=== PATIENT | male | born 1950 | race Caucasian/White ===

== ENCOUNTER → 2018-04-26 | Outpatient (CLI) | payer BC | LOC: FIMAGING 13:48 | PROVIDERS: ATTEND Family Medicine | DX: I80.02 Phlebitis and thrombophlebitis of superficial vessels of left lower extremity (principal) ==

== ENCOUNTER 2018-10-31 10:06 | Inpatient (IN) | payer BC ==
[2018-10-31] MEDS ORDERED: fentaNYL 100 MCG/2 ML INJ IVP ONE (11:12)
--- NOTE | 2018-10-31 11:16 | EDPHY ---
General - History Smoking Status: Never smoked Time Seen by Provider: 10/31/18 10:21 Narrative: CLINICAL IMPRESSION: Left leg cellulitis, acute renal insufficiency ASSESSMENT/PLAN: 68-year-old male with reported past medical history of hypertension presents to the emergency department with approximately 1 week of left leg redness, pain and swelling. Patient reports a past history of his superficial DVT to this leg treated with [id number] NSAIDs last year. No reported travel, trauma , or recent surgery. Patient has a very erythematous circumferential left lower leg with extension along the medial aspect of the upper leg into the groin. No clinical signs to suggest necrotizing fasciitis, Gaye gangrene, osteomyelitis, or deep space abscess, ultrasound negative for DVT. No clinical signs of compartment syndrome. Distal neurovascular exam intact. No open wounds. Patient was found to have acute renal insufficiency with a creatinine of 3.2, leukocytosis of 20, normal lactate and arrives with stable vital signs, afebrile, no tachycardia or respiratory distress. No reported history of MRSA or prior staph infections. Patient is not diabetic. Blood cultures ordered. Ancef initiated in the ED and patient will be admitted to the hospitalist service. Discussed with Dr. Lehman who accepts admission. DIFFERENTIAL DX: Differential includes but not limited to DVT, superficial thrombus, venous stasis, cellulitis, necrotizing fasciitis, osteomyelitis ED PROCEDURES: See lab and/or imaging results below ED COURSE: 11:15 a.m.. Allergy calls with ultrasound resort which is negative for DVT. Reactive lymph node in left groin. Clinically, patient appears to have a very cellulitic leg. Labs show leukocytosis of 20, acute renal insufficiency of 3.2 , no electrolyte imbalance and normal lactate. 12:30 p.m.: Patients case discussed with Dr. Lehman who accepts admission. Labs notable for leukocytosis of 20, normal lactic, renal insufficiency with a creatinine 3.2. IV Ancef ordered per Dr. Blackwell his request. Patient comfortable with admission. CHIEF COMPLAINT: Left leg swelling HPI: 68-year-old male with reported past medical history of hypertension presents to the emergency department with approximately 1 week of left leg swelling. No reported trauma or injury. Patient reports past history of superficial thrombus in this leg treated with [id number]-khlpiyu NSAIDs the last year with full resolution. He reports his left leg is always slightly more swollen than his right. He reports no fevers or chills, heart palpitations, shortness of breath, or chest pain. No open wound or injury to the leg. No history of MRSA or staph. No IV drug abuse. Patient was brought to the ED today by his sister he has not seen a provider for his leg. PAST MEDICAL HISTORY: Hypertension See nurse/triage notes for additional history if applicable Pertinent Past Surgical History: None reported Family History: Noncontributory Social History: Denies history of staph, MRSA, nonsmoker, here with his sister REVIEW OF SYSTEMS: All other systems negative Constitutional: No fever, no chills, appetite change. Cardiovascular: No chest pain, no palpitations. Respiratory: No cough, no shortness of breath. Gastrointestinal: No abdominal pain, no vomiting, diarrhea. Genitourinary: No hematuria, dysuria, flank pain, pelvic pain Musculoskeletal: No back pain, positive for joint swelling, positive for joint pain, denies myalgias. Skin: Positive for color change to left leg Neurological: No headache, dizziness, weakness. PHYSICAL EXAM: General Appearance: Alert, oriented, appropriate, obese, cooperative, appears mildly uncomfortable, well hydrated, non-toxic appearing, afebrile, no tachycardia, no hypoxia. Respiratory: There are no retractions, lungs are clear to auscultation. Cardiac: Regular rate and rhythm, no murmurs or gallops. Gastrointestinal: Abdomen is soft, nontender, bowel sounds normal, no masses/ hernia, no rigidity, guarding or focal peritoneal findings. Neurological: Alert and oriented x 3, CN 2-12 grossly intact, normal gait no ataxia, DTR's intact, normal sensation and strength Skin: Warm, dry, no rashes, no nodules on palpation. Musculoskeletal: Asymmetric swelling of left lower leg compared to right. Circumferential erythema and warmth of the entire left lower leg extending to the ankle and foot with extension along the medial aspect of the left upper leg into the groin. No perineal involvement. No scrotal or testicular swelling or pain. No crepitus. No obvious open wound. Distal neurovascular exam is intact. Full range of motion of ankle foot knee and hip without joint pain. Psychiatric: Patient is oriented X 3, there is no agitation. MEDICAL DECISION MAKING: Patient was seen independently. Secondary supervising physician at time of evaluation was Dr. Owens . Diagnosis: Left leg cellulitis, acute renal insufficiency. New, requires workup Summary: See Assessment and Plan for summary of ED visit Clinical lab tests: ordered / reviewed. Independent visualization of images, tracing, or specimens: Yes. Decision to obtain medical records or history from someone other than the patient: No Review / Summarize previous medical records: None available Discussed patient with another provider: Dr. Lehman Patient Progress: Stable for admission. (Esa Roman) Discussion: The patient was evaluated and managed by the Physician [employer]. I discussed the patient's presentation and course with the midlevel provider with them and agree with the evaluation. My co-signature indicates that I have reviewed this chart and I agree with the findings and plan of care as documented. I am the secondary supervising physician. Sepsis Evaluation Note: The patient presents to the ED with potential infection identified as cellulitis. The patient did not have evidence of sepsis; he was afebrile, not tachycardic, not tachypneic. He did have a significantly elevated white blood cell count at 20,000. Lactic acid was normal. INR was normal. Platelets were normal. Bilirubin was not elevated. Patient did have evidence of acute renal insufficiency. Patient received ceftriaxone 1 g. (Estefani Owens) - Objective Vital Signs: Initial Vital Signs Temperature (C) 36.4 C 10/31/18 10:14 Heart Rate 89 10/31/18 10:14 Respiratory Rate 18 10/31/18 10:14 Blood Pressure 106/60 10/31/18 10:14 O2 Sat (%) 94 10/31/18 10:14 O2 Delivery Mode Room Air Allergies/Adverse Reactions: No Known Allergies Allergy (Verified 10/31/18 13:07) Home Medications: Medication Instructions Recorded Losartan/Hydrochlorothiazide 1 each PO DAILY 10/31/18 [Losartan-Hctz 100-25 mg Tab] Laboratory Results: Laboratory Results 10/31/18 11:27 10/31/18 11:27 Medications Given: Hydrocodone Bitart/Acetaminophen ([place] 5/325) 1 - 2 tab PO Q4HRS PRN PRN Reason: Pain, Moderate Able to Take PO Stop: 11/10/18 12:43 Last Admin: 11/01/18 06:47 Dose: 2 tab Heparin Sodium (Porcine) (Heparin Sc Injection) 5,000 unit SC Q8 RONNIE Stop: 04/29/19 13:59 Last Admin: 11/01/18 13:06 Dose: 5,000 unit Cefazolin Sodium/Dextrose (Ancef) 100 mls @ 200 mls/hr IV Q12H RONNIE PRN Reason: Protocol Stop: 11/30/18 20:59 Last Admin: 11/01/18 08:04 Dose: 100 mls Sodium Chloride (Ns) 1,000 mls @ 100 mls/hr IV CONT RONNIE Stop: 04/29/19 12:44 Last Admin: 11/01/18 13:07 Dose: 1,000 mls Discontinued Medications Fentanyl (Sublimaze) 50 mcg IVP EDNOW ONE Stop: 10/31/18 11:13 Last Admin: 10/31/18 11:29 Dose: 50 mcg Sodium Chloride (Ns) 1,000 mls @ 0 mls/hr IV EDNOW ONE; Wide Open PRN Reason: Protocol Stop: 10/31/18 12:08 Last Admin: 10/31/18 12:21 Dose: 1,000 mls Ceftriaxone Sodium/Dextrose (Rocephin 1 Gm (Premix)) 50 mls @ 100 mls/hr IV EDNOW ONE PRN Reason: Protocol Stop: 10/31/18 12:48 Last Admin: 10/31/18 15:23 Dose: Not Given Cefazolin Sodium/Dextrose (Ancef) 100 mls @ 200 mls/hr IV EDNOW ONE PRN Reason: Protocol Stop: 10/31/18 13:01 Last Admin: 10/31/18 13:24 Dose: 100 mls Sodium Chloride (Ns) 1,000 mls @ 0 mls/hr IV ONCE ONE; Wide Open PRN Reason: Protocol Stop: 10/31/18 13:36 Last Admin: 10/31/18 13:30 Dose: 1,000 mls Sodium Chloride (Ns) 250 mls @ 500 mls/hr IV ONCE ONE Stop: 11/01/18 12:14 Last Admin: 11/01/18 11:53 Dose: 250 mls Departure - Departure Disposition: [facility] Inpatient Acute Clinical Impression: Left leg cellulitis, Renal insufficiency
[2018-10-31 11:41] LABS: PLATELET COUNT 182 10^3/uL (150-400)
[2018-10-31] MEDS ORDERED: NS 1,000 ML IV ONE ×2 (12:07→13:35)
[2018-10-31] MEDS ORDERED: ceFAZolin 2 GM/DEXTROSE 100 ML IV ONE (12:32)
[2018-10-31] MEDS ORDERED: ONDANSETRON 4 MG/2 ML VIAL IVP PRN (12:44)
[2018-10-31] MEDS ORDERED: ACETAMINOPHEN 325 MG TAB PO PRN (12:44)
[2018-10-31] MEDS ORDERED: ONDANSETRON DISINTEGRATING 4 MG TAB PO PRN (12:44)
[2018-10-31] MEDS ORDERED: HYDROmorphONE/DILAUDID 1 MG/ML INJ IVP PRN (12:44)
--- NOTE | 2018-10-31 12:53 | PDGENHP ---
History and Physical - Chief Complaint LLE pain, swelling, redness - History of Present Illness 68 yo male with h/o obesity and hypertension presents to ED with LLE swelling, pain and redness. His symptoms started 4 days ago with mild LLE discomfort. Today, he noticed increased redness and felt "pins and needles" with increased swelling and redness. He denies recent injury or skin lacerations. He denies fevers or chills. He reports decreased oral intake recently. He takes Losartan / HCTZ for hypertension. He also notes he has been told by PCP he has small amount of blood in his urine, but he denies gross hematuria or clots. No N/V. No abdominal pain, CP or SOB. In the ED, he had a LE u/s which was negative for DVT. His WBC count is elevated and he has a LLE cellulitis. He is noted to have elevated BUN and Cr. He received 2 g IV Ancef and is admitted for further management. History Information - Allergies/Home Medication List Allergies/Adverse Reactions: No Known Allergies Allergy (Verified 10/31/18 13:07) Home Medications: Losartan/Hydrochlorothiazide [Losartan-Hctz 100-25 mg Tab] 1 each PO DAILY 10/31 [Last Taken 10/31/18] I have personally reviewed and updated: family history, medical history, social history, surgical history - Past Medical History hypertension Additional medical history: h/o microscopic hematuria. obesity - Surgical History Reports: no pertinent surgical hx - Family History Positive for: non-pertinent - Social History Smoking Status: Never smoked Alcohol Use: Rarely Drug Use: None Additional social history: Lives with his sister. 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 No recent injuries. Review of Systems Review of Systems: ROS: 10pt was reviewed & negative except for what was stated in HPI & below Physical Exam Physical Exam: Temp Pulse Resp BP Pulse Ox 36.4 C 89 18 106/60 94 10/31/18 10:14 10/31/18 10:14 10/31/18 10:14 10/31/18 10:14 10/31/18 10:14 Constitutional: no apparent distress Eyes: PERRL Ears, Nose, Mouth, Throat: moist mucous membranes Cardiovascular: regular rate and rhythym Respiratory: no respiratory distress, clear to auscultation Gastrointestinal: normoactive bowel sounds, soft, non-tender abdomen Skin: warm, other (LLE with edema and circumferential erythema of distal LE, lymphangitic streaking to groin with LAD) Musculoskeletal: full muscle strength Neurologic: AAOx3 Psychiatric: interacting appropriately Lab Data & Imaging Review 10/31/18 11:27 10/31/18 11:27 WBC 20.45 10^3/uL (3.80-9.50) H 10/31/18 11:27 RBC 5.19 10^6/uL (4.40-6.38) 10/31/18 11:27 Hgb 16.1 g/dL (13.7-17.5) 10/31/18 11:27 Hct 47.5 % (40.0-51.0) 10/31/18 11:27 MCV 91.5 fL (81.5-99.8) 10/31/18 11:27 MCH 31.0 pg (27.9-34.1) 10/31/18 11:27 MCHC 33.9 g/dL (32.4-36.7) 10/31/18 11:27 RDW 14.6 % (11.5-15.2) 10/31/18 11:27 Plt Count 182 10^3/uL (150-400) 10/31/18 11:27 MPV 10.3 fL (8.7-11.7) 10/31/18 11:27 Neut % (Auto) Not Reported 10/31/18 11:27 Lymph % (Auto) Not Reported 10/31/18 11:27 [place] % (Auto) Not Reported 10/31/18 11:27 Eos % (Auto) Not Reported 10/31/18 11:27 Baso % (Auto) Not Reported 10/31/18 11:27 Nucleat RBC Rel Count Not Reported 10/31/18 11:27 Absolute Neuts (auto) Not Reported 10/31/18 11:27 Absolute Lymphs (auto) Not Reported 10/31/18 11:27 Absolute Monos (auto) Not Reported 10/31/18 11:27 Absolute Eos (auto) Not Reported 10/31/18 11:27 Absolute Basos (auto) Not Reported 10/31/18 11:27 Absolute Nucleated RBC Not Reported 10/31/18 11:27 Immature Gran % Not Reported 10/31/18 11:27 Seg Neutrophils % 91.0 % 10/31/18 11: Band Neutrophils % 5.0 % 10/31/18 11: Lymphocytes % 3.0 % 10/31/18 11: Monocytes % 1.0 % 10/31/18 11: Eosinophils % 0.0 % 10/31/18 11: Basophils % 0.0 % 10/31/18 11: Metamyelocytes % 0.0 % 10/31/18 11: Myelocytes % 0.0 % 10/31/18 11: Promyelocytes % 0.0 % 10/31/18 11: Blast Cells % 0.0 % 10/31/18 11:27 Immature Gran # Not Reported 10/31/18 11: Absolute Seg Neuts 18.61 10^3/uL (1.70-6.50) H 10/31/18 11:27 Absolute Band Neuts 1.02 10^3/uL (0.00-0.70) H 10/31/18 11:27 Absolute Lymphocytes 0.61 10^3/uL (1.00-3.00) L 10/31/18 11:27 Absolute Monocytes 0.20 10^3/uL (0.30-0.80) L 10/31/18 11: Absolute Eosinophils 0.00 10^3/uL (0.03-0.40) L 10/31/18 11: Absolute Basophils 0.00 10^3/uL (0.02-0.10) L 10/31/18 11:27 Absolute Metamyelocyte 0.00 10^3/mL (0.00-0.00) 10/31/18 11:27 Absolute Myelocytes 0.00 10^3/mL (0.00-0.00) 10/31/18 11:27 Absolute Promyelocytes 0.00 10^3/uL (0.00-0.00) 10/31/18 11: Absolute Plasma Cells 0.00 10^3/uL (0.00-0.00) 10/31/18 11: Nucleated RBCs 0 /100 WBC (0-0) 10/31/18 11:27 Absolute Blast Cells 0.00 10^3/uL (0.00-0.00) 10/31/18 11:27 Plasma Cells % 0.0 % 10/31/18 11:27 Toxic Vacuolation PRESENT H 10/31/18 11:27 Platelet Estimate ADEQUATE (ADEQ) 10/31/18 11:27 Oval Macrocytes 1+ H 10/31/18 11:27 VBG Lactic Acid 1.3 mmol/L (0.7-2.1) 10/31/18 11:54 Sodium 135 mEq/L (135-145) 10/31/18 11:27 Potassium 3.9 mEq/L (3.5-5.2) 10/31/18 11:27 Chloride 98 mEq/L (97-110) 10/31/18 11:27 Carbon Dioxide 23 mEq/l (22-31) 10/31/18 11:27 Anion Gap 14 mEq/L (6-14) 10/31/18 11:27 BUN 82 mg/dL (7-23) H 10/31/18 11:27 Creatinine 3.2 mg/dL (0.7-1.3) H 10/31/18 11:27 Estimated GFR 10/31/18 11:27 Glucose 103 mg/dL (70-100) H 10/31/18 11:27 Calcium 9.1 mg/dL (8.5-10.4) 10/31/18 11:27 Assessment & Plan Assessment: Sepsis 2/2 LLE cellulitis - WBC 20 with HR ~100, afebrile, nl lactate, no hypotension. CRP markedly elevated >400. Source could be cracked skin on heel. Also a bit of onychomycosis, mostly left great toenail. U/S neg for DVT , groin LAD likely reactive. -bolus 1L NS now -Ancef 2 g IV q12h (renally dosed) -elevate leg, pain control -BCx's pending -trend wbc's and crp -ID consult if not improving MARK - prior data from 2010 showed nl Cr, o/w unclear baseline. He does take Losartan/HCTZ, which could be contributory. Azotemia suggests pre-renal. -check ua (hematuria noted, granular casts suggestive of ATN, 1+ protein) will check urine pro:Cr ratio -send urine studies for FeNa -renal u/s is negative for hydro or abnormalities of kidneys -will give NS for hydration and recheck labs in am -hold ARB and HCTZ -renal consult if not improving with IVF's Microscopic hematuria - pt has been told he has microscopic hematuria during prior physical exams, has not seen urology -outpt urology consult as he likely warrants cystoscopy Hypertension - hold losartan / hctz, currently normotensive Full code DVT PPLX - Heparin (monitor to ensure he doesn't develop gross hematuria) Dispo - inpt, anticipate >48 hrs hospitalization for management of LLE cellulitis and MARK
[2018-10-31 13:00] LABS: INR 1.05 (0.83-1.16); PROTIME(PATIENT) 13.9 SEC (12.0-15.0)
[2018-10-31] MEDS: HEPARIN 5,000 UNIT/0.5 ML INJ SC SCH ×2 (14:26→21:08)
--- NOTE | 2018-10-31 15:12 | PDMN ---
Medical Necessity Medical necessity: Pt meets inpt criteria per MD order and [facility] [place] [id number], Renal Failure, Acute. 68 y/o admitted w/LLE cellulitis and MARK w/BUN & creatinine of 82 & 3.2. IVF, IV abx's, bl cx's pending, 3 L O2 at this time, further workup w/ UA and renal US. Anticipate>2MN for management of above.
[2018-10-31] MEDS: HYDROCODONE/APAP 5/325 TAB PO PRN ×2 (18:22→22:23)
[2018-10-31] MEDS: NS 1,000 ML IV SCH (21:08)
[2018-10-31] MEDS: ceFAZolin 2 GM/DEXTROSE 100 ML IV SCH (21:08)
[2018-11-01] MEDS: HYDROCODONE/APAP 5/325 TAB PO PRN ×3 (02:35→21:25)
[2018-11-01 05:21] LABS: PLATELET COUNT 162 10^3/uL (150-400)
[2018-11-01] MEDS: HEPARIN 5,000 UNIT/0.5 ML INJ SC SCH ×3 (05:51→21:25)
[2018-11-01] MEDS: NS 1,000 ML IV SCH ×3 (07:02→23:59)
[2018-11-01] MEDS: ceFAZolin 2 GM/DEXTROSE 100 ML IV SCH ×2 (08:04→21:24)
--- NOTE | 2018-11-01 10:01 | ASMTCMCOM ---
CM Note CM Note Notes: Pt s a 68 y/o man admitted for left leg cellulitis and acute renal insufficiency. Pt will most likely d/c independent when medically stable. No therapies ordered at this time. CM available for changes. Plan: Independent Date Signed: 11/01/2018 10:01 AM Electronically Signed By:CHRISTINA Luz
--- NOTE | 2018-11-01 10:49 | HOSPPROG ---
Hospitalist Progress Note Assessment/Plan: Damian Bowles presented to the ER with LLE swelling and pain, his symptosm started 4 days prior to admission. Ultrasound of left leg negative for a DVT.First encounter, chart reviewed. *Sepsis 2/2 LLE cellulitis -has high wbc, elevated heart rate on admission -CRP elevated -left toe nail w some onychomycosis -will ask ID to get involved w his care -Ancef 2 g IV q12h (renally dosed) *morbid obesity w a BMI of 42 *MARK -takes Losartan/HCTZ -FENA is 0.48 %, showing likely [id number] hydration, if not significantly improved, will ask nephrology to see -CREAT is improving w hydration -renal ultrasound is negative for hydro or other abnormalities -has hematuria and proteinuria-will need OP f/u *Microscopic hematuria - pt has been told he has microscopic hematuria during prior physical exams, has not seen urology -outpt urology consult as he likely warrants cystoscopy Hypertension - hold losartan / hctz, currently normotensive Full code *dvt prophylaxis: heparin sq tid Subjective: Damian said his leg feels more painful when he gets antibiotic infusions. Objective: Vital Signs Temp Pulse Resp BP Pulse Ox 36.9 C 86 18 96/57 L 93 11/01/18 08:14 11/01/18 08:14 11/01/18 08:14 11/01/18 08:39 11/01/18 08:14 Laboratory Results 11/01/18 05:05 11/01/18 05:05 10/31/18 11/01/18 11/02/18 05:59 05:59 05:59 Intake Total 2400 600 Output Total 1125 200 Balance 1275 400 PT 13.9 SEC (12.0-15.0) 10/31/18 11:27 INR 1.05 (0.83-1.16) 10/31/18 11:27 - Physical Exam Constitutional: chronically ill appearing, obese, uncomfortable Eyes: PERRL Ears, Nose, Mouth, Throat: hearing normal Cardiovascular: regular rate and rhythym, no murmur, rub, or gallop Respiratory: no respiratory distress, reduced air movement Gastrointestinal: other (abd large and round) Skin: warm, other (left lower ext with swelling, redness, warmth, tender, has a cracked dry heel) Neurologic: AAOx3 Psychiatric: interacting appropriately ICD10 Worksheet Patient Problems: Problems Problem Status Onset Left leg cellulitis Acute Renal insufficiency Acute
[2018-11-01] MEDS ORDERED: NS 250 ML IV ONE (11:45)
--- NOTE | 2018-11-01 14:22 | GCON ---
[f rep st] CONSULTATION INFECTIOUS DISEASE CONSULTATION DATE OF CONSULTATION: 11/01/2018 REFERRING PHYSICIAN: Gillian Tran NP REASON FOR CONSULTATION: Left lower extremity cellulitis and leukocytosis. HISTORY OF PRESENT ILLNESS: A 68-year-old male with minimal past medical history except for superficial DVT in June or July 2018, treated with Advil, and hypertension, who was in his usual state of health until October 27 when he describes the onset of malaise, nausea, and pins and needles in his left lower extremity. He stayed home from work the following day, but then started noticing progressive redness in his legs and eventually presented to the emergency room for further evaluation 10/31/2018, and was found to have left lower extremity cellulitis. Blood cultures were obtained at that time, which are no growth to date, and the patient was empirically started on renally dosed cefazolin as the patient was found to have a creatinine of 3.2. Renal ultrasound was negative, and DVT study of his left lower extremity was negative. We are asked to see the patient today for the help in management of severe left lower extremity cellulitis complicated by significant associated leukocytosis and renal failure. The patient reports that his leg is 40% better today, specifically describing less intense redness, as well as swelling. He noticed that the erythema was streaking up his medial thigh, and he states that that is the part that is most improved. He denies ever having any fevers or chills. Prior to coming into the hospital, the patient was taking for about 3 to 4 days, 4 tablets of ibuprofen every 6 hours. He is having intermittent pain of the left lower extremity that is a little bit worse than on admission, particularly with ambulating. The patient denies any injury to his leg precipitating this event nor has he had a past skin infection. He had been instructed to wear compression stockings in the past, but is unaware of a specific diagnosis of venous insufficiency. He does comply with his compression socks, as for his job the patient stands long hours. PAST MEDICAL HISTORY: History of superficial DVT in June 2018, treated with Advil. Hypertension. He was on losartan/hydrochlorothiazide since September 05 2018. PAST SURGICAL HISTORY: Multiple eye surgeries. He has had 2 detached retinas starting in 2008, followed by cataract surgery, and YAG. FAMILY HISTORY: Positive for diabetes in his father and his sister. SOCIAL HISTORY: The patient has never smoked. No alcohol. 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 He was born and raised in [place]. He has a pet dog, but denies specific injury from his dog and no recent travel. The patient lives with his sister. ALLERGIES: NKDA. MEDICATIONS: Ancef 2 g IV q.12 h., as well as a variety of other p.r.n. medicines. REVIEW OF SYSTEMS: A complete 10-point review of systems was performed and was negative except as mentioned in the HPI or below. The patient does describe urinary frequency, but no dysuria. His urinary frequency is chronic. PHYSICAL EXAM: VITAL SIGNS: T-max 37.2, temperature currently 36.7, blood pressure 103/47, heart rate 84, and saturation 91% on 1 L. GENERAL: This is a very pleasant male sitting up in bed, in no acute distress. HEENT: The patient has surgical pupils bilaterally with obvious prior cataract surgery. No conjunctival injection. The patient has obvious dental caries that are in various stages of management. No thrush or oral ulceration. NECK: Supple. CARDIOVASCULAR: Distant heart sounds. Regular rate. No murmurs. CHEST: Clear to auscultation bilaterally. ABDOMEN: Obese, soft, and nontender. Bowel sounds are present. EXTREMITY EXAM: The patient has circumferential bright erythema that is well demarcated involving about 75% of his lower leg, but sparing his foot. Erythema is tracking up to about 1/3 of the lateral thigh and medial thigh all the way to the groin medially. It appears somewhat freddy in complexion consistent with improvement. The patient has 2+ dorsalis pedis pulses bilaterally and 3+ edema in the left leg, 1+ in the right. NEUROLOGICAL: He is alert and oriented x4. Moving all 4 extremities equally. SKIN: Exam is within normal limits other than what is noted on the extremity exam. VASCULAR: He has a peripheral IV in place in the right forearm that is clean, dry, and intact. GENITOURINARY: No Syed. LABORATORY: Creatinine 2.6 today with standard Cockcroft-Gault. Creatinine clearance is 52, but with adjusted body weight = 37. CRP is 405. Urinalysis showed 50 to 182 RBCs and 10 to 15 WBCs. White count is 21,000, hematocrit 41, platelets 162, 81% neutrophils, and 10% bands. Blood cultures 2/25/19 are no growth to date. IMAGING: As per HPI. ASSESSMENT AND PLAN: This is a 68-year-old male with minimal past medical history, who presents with severe left lower extremity cellulitis and lymphangitis that is gradually improving on empiric therapy with Ancef. 1. Left lower extremity cellulitis and lymphangitis that are gradually improving. Discussed likely pathogens including streptococcus being #1, as well as the possibility of staphylococcus. The patient has no history of methicillin-resistant Staphylococcus aureus. I agree with continued coverage for standard streptococcus and staphylococcus. Add on LFTs due to beta-lactam therapy to monitor going forward. The patient is to continue to elevate his left lower extremity. At this time, would not recommend additional imaging, but will continue to clinically monitor closely. With improvement,would not add clindamycin at this time even though streptococcal disease high on the differential diagnosis. 2. Leukocytosis, most certainly due to severe left lower extremity cellulitis and lymphangitis. We will continue to monitor. 3. Likely underlying venous insufficiency, as well as poor foot hygiene. Discussed nail care and foot care, including focused bathing of his lower extremities and lotion, as well as potentially followup with a quality assurance specialist due to significant skin cracking and calluses. This is likely the portal of his infection. Upon improvement of infection recommend continued use of compression stockings 4. Acute renal failure. Etiology multifactorial due to diuretic therapy and acute infection, as well as nonsteroidal antiinflammatory drug therapy. His adjusted creatinine clearance is 37, and we will continue him on a dose adjusted Ancef 2 g intravenously q.12 h. Greater than 85 minutes spent on this patients care, greater than 50% of time spent counseling, educating, and coordinating care regarding the above mentioned plan. Thank you for this consultation. We will continue to follow patient on a daily basis and adjust antibiotics as his renal functions improve. The patient was educated, which was specifically detailed in above assessment and plan. /[id number]/MODL MTDD
[2018-11-01] MEDS ORDERED: NS 500 ML IV ONE (16:09)
[2018-11-02] MEDS: HEPARIN 5,000 UNIT/0.5 ML INJ SC SCH ×3 (05:23→21:50)
[2018-11-02 05:39] LABS: PLATELET COUNT 208 10^3/uL (150-400)
[2018-11-02] MEDS: HYDROCODONE/APAP 5/325 TAB PO PRN ×2 (06:19→20:55)
[2018-11-02] MEDS ORDERED: PROTOCOL POTASSIUM 1 DOSE MISC PRN (07:46)
[2018-11-02] MEDS ORDERED: NS 500 ML IV ONE (07:46)
[2018-11-02] MEDS ORDERED: POTASSIUM CL 10 MEQ TAB PO ONE ×2 (07:57→20:45)
[2018-11-02] MEDS ORDERED: POTASSIUM Cl (KCl) 100 ML IV SCH ×2 (08:00)
--- NOTE | 2018-11-02 08:08 | HOSPPROG ---
Hospitalist Progress Note Assessment/Plan: Damian Bowles presented to the ER with LLE swelling and pain, his symptosm started 4 days prior to admission. Ultrasound of left leg negative for a DVT. *Sepsis 2/2 LLE cellulitis w associated lymphangitis -has high wbc, elevated heart rate on admission -CRP elevated -left toe nail w some onychomycosis, venous insufficiency -appreciate Id -Ancef 2 g IV q12h (renally dosed) *tachycardia w associated hypotension -give a saline bolus now -patient talking and conversant -get a 12 lead EKG now *hypotension -fluid bolus now *elevated LFT's -better today *hypokalemia -added protocol *morbid obesity w a BMI of 42 *MARK -creat improved w hydration -takes Losartan/HCTZ -FENA is 0.48 %, showing likely [id number] hydration -renal ultrasound is negative for hydro or other abnormalities -has hematuria and proteinuria-will need OP f/u *Microscopic hematuria - pt has been told he has microscopic hematuria during prior physical exams, has not seen urology -outpt urology consult as he likely warrants cystoscopy *Hypertension - hold losartan / hctz *dvt prophylaxis: heparin sq tid *plan: will have a low threshold to tx to step down if he becomes hypotensive again Subjective: Damian said he is feeling better today. Objective: Vital Signs Temp Pulse Resp BP Pulse Ox 36.9 C 124 H 16 85/60 L 92 11/02/18 07:46 11/02/18 07:46 11/02/18 07:46 11/02/18 07:46 11/02/18 07:46 Laboratory Results 11/02/18 05:10 11/02/18 05:10 11/01/18 11/02/18 11/03/18 05:59 05:59 05:59 Intake Total 2400 1250 Output Total 1125 1950 325 Balance 1275 -700 -325 PT 13.9 SEC (12.0-15.0) 10/31/18 11:27 INR 1.05 (0.83-1.16) 10/31/18 11:27 - Physical Exam Constitutional: appears nourished, not in pain, obese Eyes: PERRL Ears, Nose, Mouth, Throat: hearing normal Cardiovascular: regular rate and rhythym, tachycardia Respiratory: no respiratory distress Skin: warm, other (left lower ext w redness, swelling, has redness ext up the back of his left thigh area, has associated lymphangitis) Neurologic: AAOx3 Psychiatric: interacting appropriately ICD10 Worksheet Patient Problems: Problems Problem Status Onset Left leg cellulitis Acute Renal insufficiency Acute
[2018-11-02] MEDS: ceFAZolin 2 GM/DEXTROSE 100 ML IV SCH ×2 (08:25→17:23)
--- NOTE | 2018-11-02 10:42 | PCMIDPN ---
Assessment/Plan: # Severe LLE cellulitis with lymphangitis, likely strep mediated, more intense erythema likely related to expected course with treatment of strep infection. Still with significant leukocytosis/bandemia. Blood cx remain negative --add clindamycin for lytton effect --continue cefazolin, increase dose to q8h due to improving renal function --continue elevation LLE --reviewed risks benefits of PICC line with patient --continue to monitor closely for need for imaging LLE # ARF: Cr improved today, CrCl around 50 Meds Cefazolin 2gm IV q12h#2 micro 10/31 blood cx (2) NGTD Subjective: patient with hypotension and tachycardia due to aflutter denies significant pain LLE, actually improving denies SOB Objective: Vital Signs Temp Pulse Resp BP Pulse Ox 36.9 C 127 H 16 80/62 L 92 11/02/18 07:46 11/02/18 08:58 11/02/18 07:46 11/02/18 08:58 11/02/18 07:46 Laboratory Results 11/02/18 05:10 11/02/18 05:10 11/01/18 11/02/18 11/03/18 05:59 05:59 05:59 Intake Total 2400 1250 Output Total 1125 1950 325 Balance 1275 -700 -325 C-Reactive Protein > 270.0 mg/L (<10.0) H 11/01/18 05:05 - Physical Exam General Appearance: alert, no apparent distress Respiratory: lungs clear, No accessory muscle use Cardiac/Chest: tachycardia, No systolic murmur Extremities: erythema (intense erythema LLE stocking distrubution tracking up medial thigh - erythema more intense and spread compared to yesterday, no crepitis, minimal tenderness to palpation) Peripheral Pulses: 1+: dorsalis-pedis (R), dorsalis-pedis (L) Abdomen: non-tender, soft Skin: normal color, warm/dry, No rash Neuro/Psych: alert, normal mood/affect, oriented x 3 - Time Spent With Patient Time Spent with Patient: greater than 35 minutes Time Spent with Patient: Greater than 35 minutes spent on this patients care, greater than 50% of time spent counseling, educating, and coordinating care regarding the above mentioned plan. ICD10 Worksheet Patient Problems: Problems Problem Status Onset Left leg cellulitis Acute Renal insufficiency Acute
[2018-11-02] MEDS: NS 1,000 ML IV SCH (12:18)
[2018-11-02] MEDS: CLINDAMYCIN 600 MG/DEXTROSE 50 ML IV SCH ×3 (12:20→21:50)
--- NOTE | 2018-11-02 17:53 | GCON ---
[f rep st] CONSULTATION PULMONARY/CRITICAL CARE CONSULTATION DATE OF CONSULTATION: 11/02/2018 REFERRING PHYSICIAN: Gillian Tran NP REASON FOR REFERRAL: Evaluation and management of hypotension and tachycardia, possible sepsis. HISTORY: The patient is a 68-year-old male with a past history of superficial DVT and hypertension w ho was doing pretty well until about a week ago when he started having malaise, nausea, and dysesthes ias in his left lower extremity. He started to notice progressive redness in his left more so than r ight leg and presented to the emergency department 2 days ago, where he was found to have cellulitis. Blood cultures were done at that time. He was found to have acute renal insufficiency. He was see n by Dr. Rogers from infectious disease, who recommended continuing the Ancef and has now recommended adding clindamycin. He was doing fairly well until today when he began to develop hypotension with a systolic blood pressure as low as 69. His heart rate is in the 120s and irregular consistent with atrial fibrillation. He has been given IV fluids, and reports that he is feeling better. His leg is still somewhat tender, but less uncomfortable. He is not feeling particularly lightheaded or short of breath. PAST MEDICAL HISTORY: Hypertension. MEDICATIONS: At the time of admission include losartan/HCTZ. Here in the hospital, he has been on A ncef, and clindamycin was added today. ALLERGIES: None. SOCIAL HISTORY: The patient has never smoked. He does not drink. 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 FAMILY HISTORY: Unremarkable. REVIEW OF SYSTEMS: A 10-point review of systems adds nothing to the history of present illness. PHYSICAL EXAMINATION: GENERAL: The patient is awake and alert. He is in no acute distress. VITAL SIGNS: Blood pressure is 118/74, with a heart rate of 114. He is afebrile. Oxygen saturations are 95% on 2 L. HEENT: Normocephalic and atraumatic. No icterus. NECK: No adenopathy. Trachea is mi dline. CHEST: Clear to auscultation. CARDIAC: Irregular tachycardia without murmur. ABDOMEN: So ft, obese, and nontender. Bowel sounds are present. EXTREMITIES: No clubbing or cyanosis. He has extensive erythema of calf with patchy erythema up to the knee. The mid to lower calf and anterior l ower leg on the left are very erythematous and somewhat tender. NEURO: The patient is awake and analy rt. There are no gross motor or sensory deficits. LABORATORY: A creatinine is 1.8, down from 3.2 at admission. A potassium is 3.3. Bicarbonate level is 20, up from 19 yesterday, but down from 23 at admission. A white blood count is 19.8, down from 20.5 at admission. A chest x-ray shows appropriate position of a PICC line with no acute changes. L actate was 1.3 at admission. ASSESSMENT: 1. Hypotension. This may be related to the patient's sepsis and third-spacing. New onset atrial fi brillation with a rapid ventricular response could also be contributing. He has improved with IV flu ids. 2. Atrial fibrillation with rapid ventricular response. There is new onset atrial fibrillation, wit h no prior history. It is likely related to stress due to his cellulitis. His rate has come down sl ightly with hydration. He is asymptomatic. RECOMMENDATIONS: 1. Continue empiric antibiotics. 2. Continue fluids. 3. Check a lactate level. 4. Rate control with Cardizem on a p.r.n. basis, but I do not think that is currently needed. 5. Continue to observe in the ICU. If he is doing well, he could potentially leave the ICU tomorrow . /[id number]/MODL
[2018-11-03] MEDS: ceFAZolin 2 GM/DEXTROSE 100 ML IV SCH ×3 (00:13→16:49)
[2018-11-03] MEDS ORDERED: NS 500 ML IV ONE (00:44)
[2018-11-03] MEDS: CLINDAMYCIN 600 MG/DEXTROSE 50 ML IV SCH ×3 (05:08→22:39)
[2018-11-03] MEDS: NS 1,000 ML IV SCH ×2 (05:09)
[2018-11-03] MEDS: HEPARIN 5,000 UNIT/0.5 ML INJ SC SCH ×2 (05:10→16:50)
[2018-11-03] MEDS: HYDROCODONE/APAP 5/325 TAB PO PRN ×2 (08:10→15:11)
[2018-11-03] MEDS ORDERED: POTASSIUM CL 10 MEQ TAB PO ONE ×2 (08:29→20:34)
--- NOTE | 2018-11-03 09:05 | HOSPPROG ---
Hospitalist Progress Note Assessment/Plan: Damian Bowles presented to the ER with LLE swelling and pain, his symptoms started 4 days prior to admission. *Sepsis 2/2 LLE cellulitis w associated lymphangitis -Ancef 2 g IV q12h (renally dosed) -clindamycin added yesterday -ultrasound negative *afib, flutter -rate has significantly slowed down with hydration, but is ongoing -cardiology to see *hypotension -resolved w multiple fluid bolus *elevated LFT's -much improved *hypokalemia -added protocol *morbid obesity w a BMI of 42 *MARK -resolved -hold bp, diuretic -renal ultrasound is negative for hydro or other abnormalities -has hematuria and proteinuria-will need OP f/u *Microscopic hematuria - pt has been told he has microscopic hematuria during prior physical exams, has not seen urology -outpt urology consult as he likely warrants cystoscopy *Hypertension - hold losartan / hctz in the setting of sepsis *dvt prophylaxis: heparin sq tid *plan: tx to tele, cards to see, dc fluids Subjective: Damian did not sleep well last night, his back is hurting and left leg has pain. Objective: Vital Signs Temp Pulse Resp BP Pulse Ox 36.4 C 107 H 20 119/76 96 11/03/18 08:00 11/03/18 08:00 11/03/18 08:00 11/03/18 08:00 11/03/18 08:00 Laboratory Results 11/02/18 05:10 11/03/18 05:05 11/02/18 11/03/18 11/04/18 05:59 05:59 05:59 Intake Total 1250 3894 500 Output Total 1950 3430 200 Balance -700 464 300 PT 13.9 SEC (12.0-15.0) 10/31/18 11:27 INR 1.05 (0.83-1.16) 10/31/18 11:27 - Physical Exam Constitutional: appears nourished, obese, uncomfortable, No not in pain Eyes: PERRL Ears, Nose, Mouth, Throat: hearing normal Cardiovascular: irregularly irregular, tachycardia Respiratory: no respiratory distress, reduced air movement Skin: warm, other (left lower ext red, hot, has some yellowish drainage, redness extends above the knee into the left groin area , has some wrinkling in his nina area) Neurologic: AAOx3 Psychiatric: interacting appropriately ICD10 Worksheet Patient Problems: Problems Problem Status Onset Left leg cellulitis Acute Renal insufficiency Acute
--- NOTE | 2018-11-03 12:58 | PCMIDPN ---
Assessment/Plan: Assessment: 68-year-old man with severe left lower extremity cellulitis and erysipelas. His leg is improved within 24 hr after adding clindamycin as the adjunct for decreasing toxin production. Suspect his conversion atrial fibrillation may be related to the intense inflammatory responses infection. Will continue with dual antibiotic therapy for at least 48 hr and reassess for single agent therapy as definitive treatment. 1. Severe left lower extremity cellulitis with erysipelas, improved 2. Atrial fibrillation with hypotension, improved; likely cycle of inflammatory response 3. Acute kidney injury secondary to 1., improved 4. Transaminase elevation, secondary to 1.; resolved Plan: 1. Continue cefazolin 2 g q.8 2. Continue clindamycin 600 mg IV q.8 hours 3. Reviewed in detail potential side effects of beta-lactam antibiotics to include: allergy, rash, nausea, antibiotic-associated diarrhea, Clostridioides difficile colitis. 4. Antibiotic history: cefazolin (2.25- ); clindamycin (2.27-) Vitaliy Garg MD Infectious Diseases 11/03/18 13:06 Subjective: Transfer to the medical ICU due to atrial fibrillation and hypertension. No fever or chills. Denies diarrhea, nausea, rash. Appetite remains poor. Ambulating overall feels his left leg is improved since admission. No new concerns today. Objective: Vital Signs Temp Pulse Resp BP Pulse Ox 36.6 C 108 H 26 H 107/65 98 11/03/18 12:00 11/03/18 12:00 11/03/18 12:00 11/03/18 12:00 11/03/18 12:00 Laboratory Results 11/02/18 05:10 11/03/18 05:05 11/02/18 11/03/18 11/04/18 05:59 05:59 05:59 Intake Total 1250 3894 500 Output Total 1950 3430 500 Balance -700 464 0 C-Reactive Protein > 270.0 mg/L (<10.0) H 11/01/18 05:05 Microbiology 10/31/18 12:50 Blood Blood Culture - Preliminary 10/31/18 11:27 Blood Blood Culture - Preliminary Laboratory Tests 10/31/18 11/01/18 11/01/18 11:27 05:05 05:05 WBC 20.45 H 21.47 H Plt Count 182 162 Absolute Seg Neuts 18.61 H 17.39 H Creatinine 2.6 H AST ALT 11/01/18 11/02/18 11/02/18 05:05 05:10 05:10 WBC 19.79 H Plt Count 208 Absolute Seg Neuts 11.87 H Creatinine 1.8 H AST 83 H 59 ALT 81 H 50 11/03/18 05:05 WBC Plt Count Absolute Seg Neuts Creatinine 1.3 AST ALT - Physical Exam General Appearance: alert, no apparent distress, non-toxic EENT: No scleral icterus Respiratory: lungs clear, normal breath sounds, No respiratory distress, No accessory muscle use, No crackles, No wheezing Neck: full range of motion, supple Cardiac/Chest: other (Normal S1 and S2, no murmur) Extremities: other (Left lower extremity with dense erythema circumferentially distal to the knee extending to the ankle with decreased density of erythema over the dorsum of the foot; increased warmth throughout the left lower extremity distal to the knee over the erythematous area, there is some blistering anteriorly, no areas of fluctuance, or induration; no evidence of left knee joint effusion) Abdomen: other (Hypoactive bowel sounds, soft, nondistended, no tenderness to palpation) Skin: other (See extremity exam) Neuro/Psych: alert, normal mood/affect, oriented x 3, No confused - Time Spent With Patient Time Spent with Patient: greater than 25 minutes Time Spent with Patient: Greater than 25 minutes spent on this patients care, greater than 50% of time spent counseling, educating, and coordinating care regarding the above mentioned plan. ICD10 Worksheet Patient Problems: Problems Problem Status Onset Left leg cellulitis Acute Renal insufficiency Acute
[2018-11-03] MEDS: DIGOXIN 125 MCG TAB PO SCH (15:12)
--- NOTE | 2018-11-03 15:12 | GCON ---
[f rep st] CONSULTATION CARDIOLOGY CONSULTATION DATE OF CONSULTATION: 11/03/2018 REASON FOR CONSULTATION: We are asked by Gillian Tran NP, of [facility], to evaluate Mr. Bowles for his atrial flutter. HPI: Mr. Damian Bowles is a 68-year-old male with a past medical history for hypertension, obesity, lik charles untreated sleep apnea, previous superficial thrombophlebitis affecting the same left leg who is a dmitted with a left lower extremity cellulitis. He reports left lower extremity edema starting 4 day s prior to admission. On the day of admission, he had increased redness and dysesthesias with increa sed edema. He has not been experiencing fever or chills. He was found to have a severely elevated w paresh blood cell count as well as CRP. He is currently on dual antibiotic therapy for this. During h is hospitalization, his heart rate was noted to be elevated, and an ECG was obtained that shows atria l flutter. We are asked to evaluate patient for this atrial flutter. In general, Damian does not note any palpitations, dyspnea, PND, orthopnea, presyncope, syncope. He ad mits to snoring and has had referrals for a sleep apnea workup but has not proceeded to this to date. 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 FAMILY HISTORY: Positive for rheumatic heart disease in his sister; she has had atrial fibrillation. His mother had an IA, and his father of an IA at age 76. SOCIAL HISTORY: He is a never smoker. Reports rare alcohol intake. 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 MEDICATIONS: Outpatient medications are listed as losartan with hydrochlorothiazide. As an inpatien t, he is currently on Ancef and clindamycin. ALLERGIES: No known drug allergies. REVIEW OF SYSTEMS: As per HPI. A complete 10-point review of systems was obtained and is negative, except for what is dictated. PHYSICAL EXAMINATION: VITAL SIGNS: BP of 130/88, heart rate of 120, respirations 10. O2 saturation 95% on 2 liters per minute. GENERAL: He is a pleasant male in no apparent distress. HEENT: Head is normocephalic, atraumatic. Eyes are without scleral icterus. CARDIOVASCULAR: Heart tachycardic, irregularly irregular. RESPIRATORY: Lungs are diminished but without rhonchi or rales. GI: Abdom en is obese with normoactive bowel sounds. : No Syed present. SKIN: Left lower extremity is er ythematous and edematous. Right lower extremity is without edema. PSYCH: Normal mood and affect fo r given situation. NEURO: No focal deficits detected. LABORATORY DATA: CBC with WBC 19.79, hemoglobin 14.1, hematocrit 41.4, platelet count of 208. BMP w as sodium 137, potassium 3.6, chloride 108, CO2 20, BUN 42, creatinine 1.3, glucose of 55. I have spoken to Gillian Tran about patient's clinical course. A 12-lead ECG personally interpreted reveals atrial flutter. Telemetry reviewed. An 04/26/2018 lowe r extremity ultrasound reviewed. Shows a superficial thrombophlebitis. Kidney ultrasound was review ed. IMPRESSION AND PLAN: Mr. Damian Bowles is a 68-year-old male who presents with sepsis. 1. Sepsis. This is being managed by [facility], Infectious Disease Services. He will be con tinued on antibiotic therapy per their recommendations. 2. Atrial flutter. His heart rates are still somewhat mildly elevated. Options were reviewed with Dr. Blanco, and we will start low-dose digoxin. We will plan to follow his renal function closely and check a digoxin level in this admission. His CHADS-VASc is at least 2. We discussed options, and logan salazar is agreeable to full anticoagulation. Risks and benefits were reviewed with the patient. He h as severe sepsis which creates a high adrenergic environment. We will not proceed to cardioversion w hile he is still actively septic. We will plan to see him as an outpatient and consider cardioversio n at that point. 3. Hypertension. His blood pressures have been quite low and are only currently somewhat improved. Therefore, beta surya and calcium channel surya are being avoided at this point. 4. Obesity with a BMI of 42 and concerns of sleep apnea. We discussed the association of untreated sleep apnea with atrial fibrillation. /[id number]/MODL
--- NOTE | 2018-11-03 16:32 | ECHO ---
[email or web address] [address] [address] Main: [phone] Fax: Transthoracic Echocardiogram Name: JOSE MORALES MR#: [id number] Study Date: 11/03/2018 Study Time: 12:04 PM Date of : 1950 Age: 68 year(s) Height: 177.8 cm (70 in.) Weight: 143.79 kg (317 lb.) BSA: 2.54 m2 Gender: Male Examination: Echo Indication: New onset of A-fib, Left leg cellulitis Image Quality: Contrast: Requested by: Seble Danielson BP: 126 mmHg/65 mmHg Heart Rate: 113 bpm Rhythm: Atrial fibrillation Indication: New onset of A-fib, Left leg cellulitis Procedure Staff Client Finance Analyst: Gonzalo Flood RDCS Reading Physician: Andrew Jerome MD Requesting Provider: Conclusions: Normal size left ventricle. EF is 75 %. The left atrium is normal in size. The right atrium is normal in size. Normal appearing structures with normal function. No pericardial effusion. No prior study for comparison. Measurements: Chambers Valvular Assessment AV/MV Valvular Assessment TV/PV Normal Normal Normal Name Value Range Name Value Range Name Value Range Ao Ana (MM): 3.3 cm (2.2 cm-3.7 AV Vmax: 1.37 m/s (1 m/s-1.7 PV Vmax: 1.06 m/s (0.6 m/s-0.9 cm) m/s) m/s) IVSd (2D): 1.0 cm (0.6 cm-1.1 AV maxP mmHg ( - ) PV PGmax: 4 mmHg ( - ) cm) LVOT Vmax: 0.94 m/s (0.7 m/s-1.1 LVDd (2D): 5.1 cm (4.2 cm-5.9 m/s) cm) MV E Vmax: 0.82 m/s ( - ) LVDs (2D): 2.9 cm (2.1 cm-4 cm) LVPWd (2D): 1.1 cm (0.6 cm-1 cm) LVEF (2D): 75 (>=54 %) RVDd(2D): 2.4 cm (1.9 cm-3.8 cmmm) Continued Measurements: Chambers Valvular Assessment AV/MV Name Value Name Value Patient: JOSE MORALES Study Date: 11/03/2018 Page 1 of 2 12:04 PM LADs Lon.1 cm MV E' Septal: 0.11 m/s LA Area: 21.0 cm2 MV E/E' Septal: 7.50 LA Volume: 71 ml MV E/E' Lateral: 5.00 LA Volume Index: 28.0 ml/m2 Findings: Left Ventricle: Normal size left ventricle. No LV hypertrophy. Normal global systolic LV function. EF is 75 %. Unable to assess diastolic dysfunction. Right Ventricle: Normal size right ventricle. Normal RV function. Left Atrium: The left atrium is normal in size. Right Atrium: The right atrium is normal in size. Mitral Valve: The mitral valve is normal in appearance and function. There is no mitral valve regurgitation. Aortic Valve: The aortic valve is tri-leaflet. The aortic valve is normal in appearance. There is no aortic valve regurgitation. No aortic valve stenosis is present. Tricuspid Valve: The tricuspid valve is normal in appearance and function. Pulmonary artery pressure is not obtained due to inadequate TR jet. Pulmonic Valve: The pulmonic valve is normal in appearance and function. Aorta: The aorta is normal. Pericardium: No pericardial effusion. Exam Comments: Off axis views were obtained due to body habitus.. (No Signature Object) Patient: JOSE MORALES Study Date: 11/03/2018 Page 2 of 2 12:04 PM [id number]
[2018-11-03] MEDS: APIXABAN 5 MG TAB PO SCH (20:53)
[2018-11-04] MEDS: ceFAZolin 2 GM/DEXTROSE 100 ML IV SCH ×3 (01:10→17:02)
[2018-11-04] MEDS: CLINDAMYCIN 600 MG/DEXTROSE 50 ML IV SCH ×3 (05:56→22:11)
[2018-11-04] MEDS: HYDROCODONE/APAP 5/325 TAB PO PRN ×2 (08:10→13:47)
[2018-11-04] MEDS: APIXABAN 5 MG TAB PO SCH (08:11)
[2018-11-04] MEDS: DIGOXIN 125 MCG TAB PO SCH (08:33)
[2018-11-04] MEDS ORDERED: POTASSIUM CL 10 MEQ TAB PO ONE (08:39)
[2018-11-04] MEDS ORDERED: BACITRACIN IRRIGATION/NS 50,000 UNITS/1,000 ML BTL IRR ONE (08:44)
[2018-11-04] MEDS ORDERED: VANCOMYCIN PHARMACY TO DOSE MISC ONE (08:44)
[2018-11-04] MEDS ORDERED: NS 1,000 ML IV ONE (08:44)
--- NOTE | 2018-11-04 10:01 | PCMIDPN ---
Assessment/Plan: Assessment/Plan: * Severe left lower extremity cellulitis: Clinical appearance highly suggestive of beta-hemolytic streptococci as etiology. Clinical findings show gradual improvement with persistent leukocytosis which I suspect will be slow to resolve. Will continue both cefazolin and clindamycin with duration of adjunct to clindamycin based on clinical response. Do not think cellulitis should preclude pacemaker placement if deemed necessary from Cardiology standpoint as low likelihood cellulitis without bacteremia would significantly impact perioperative risk of infection of pacemaker. 11/04/18 09:58 Subjective: Patient with decreased left lower extremity pain. No diarrhea. Cardiology notes that patient with significant ongoing dysrhythmia with prolonged pauses with need for pacemaker. Objective: Vital Signs Temp Pulse Resp BP Pulse Ox 36.6 C 114 H 20 119/84 H 95 11/04/18 07:21 11/04/18 08:33 11/04/18 07:21 11/04/18 07:21 11/04/18 07:21 Laboratory Results 11/02/18 05:10 11/04/18 06:00 11/03/18 11/04/18 11/05/18 05:59 05:59 05:59 Intake Total 3894 1980 Output Total 3430 1875 500 Balance 464 105 -500 C-Reactive Protein > 270.0 mg/L (<10.0) H 11/01/18 05:05 Cefazolin # 4 Clindamycin # 3 Blood cultures x2 10/31/2018 no growth - Physical Exam General Appearance: alert, no apparent distress, obese, non-toxic EENT: No scleral icterus, No thrush, No conjunctival petechiae Respiratory: wheezing, No respiratory distress Cardiac/Chest: tachycardia, irregularly irregular Extremities: inflammation (Left lower extremity with erythema extending from ankle to knee and affecting posteromedial and posterolateral thigh; scattered clear bulla present over lower leg; warmth and tenderness present; some recession of erythema from previously demarcated line over medial thigh; no fluctuance or crepitus) Abdomen: non-tender, No distended Skin: No embolic lesions ICD10 Worksheet Patient Problems: Problems Problem Status Onset Left leg cellulitis Acute Renal insufficiency Acute
--- NOTE | 2018-11-04 10:51 | PDCARPN ---
Cardiology Progress Note Assessment/Plan: Mr. Bowles is a 68-year-old male admitted 4 days ago for left lower extremity cellulitis. He was also noted to be in atrial flutter with a rapid ventricular rate. He was seen in consultation by our service yesterday. He received a single 125 mcg dose of intravenous digoxin at approximately 3 PM yesterday. This morning, shortly after 8 AM, he was having breakfast. As he was attempting to swallow a piece of dry sausage, he felt that it got stuck. He took a sip of water. At that point, he says he felt like "everything stopped". On telemetry, this was associated with a 10 second episode of complete heart block. His flutter waves were readily apparent but he had no QRS complexes for a full 10 seconds. He says that similar events have evidence occurred in the past, particularly when eating something dry. He has had at least one syncopal episode in this type of setting. Based on his prolonged pause, I feel that he warrants implantation of a dual- chamber pacemaker. We are currently limited in our ability to treat/convert his atrial flutter if he has a significant propensity to high grade AV block. In addition, he is likely to have further arrhythmia episodes in the future requiring treatments which could exacerbate his conduction system difficulties. He is on intravenous antibiotics for his lower extremity cellulitis. Blood cultures from the 25th were negative. Infectious disease is involved in his care and the performance consultant feels that it is safe to proceed with pacemaker implantation. 11/04/18 10:49 Subjective: No complaints. Objective: Vital Signs (8 Hrs) Temp Pulse Resp BP Pulse Ox 11/04/18 08:33 114 H 11/04/18 07:21 36.6 C 115 H 20 119/84 H 95 11/04/18 04:00 36.6 C 115 H 18 119/84 H 96 Intake/Output (24 Hrs) 11/03/18 11/04/18 11/05/18 05:59 05:59 05:59 Intake Total 3894 1979 Output Total 3430 1875 500 Balance 464 105 -500 Intake: Oral (ml) 1300 1979 IV Infused (ml) 2594 Clindamycin 600 mg/ 100 Dextrose 50 ml @ 100 mls/ hr IV Q8HRS [facility] Rx#: [id number] Ns 1,000 ml @ 125 mls/hr 1894 IV CONT [facility] Rx#: [id number] Ns 500 ml @ Wide Open IV 500 ONCE ONE Rx#:[id number] ceFAZolin 2 GM/DEXTROSE 100 100 ml @ 200 mls/hr IV Q8H [facility] Rx#:[id number] Output: Urine (ml) 3430 1875 500 Urinal 3430 1875 500 Other: Weight 144 kg Intake Quantity Yes Sufficient Number of Voids Toilet 1 Urinal 4 4 1 Number of Stools Toilet 1 Result Diagrams: 11/02/18 05:10 11/04/18 06:00 - Physical Exam Constitutional: no apparent distress, obese Eyes: anicteric sclera Ears, Nose, Mouth, Throat: moist mucous membranes Cardiovascular: no murmurs, irregularly irregular Respiratory: clear to auscultate bilat Gastrointestinal: normoactive bowel sounds, no tenderness, no masses Skin: other (Severe left LE edema with erythema.) Neurologic: AAOx3 Psychiatric: not anxious ICD10 Worksheet Patient Problems: Problems Problem Status Onset Left leg cellulitis Acute Renal insufficiency Acute
--- NOTE | 2018-11-04 14:38 | ASMTCMCOM ---
CM Note CM Note Notes: 11/04/2018 Case Management Note Discussed pt during rounds this morning. Pt to have pacemaker today. Following ID notes for discharge antibiotic needs. Case Management d/c poc: to be determined. Case Management to follow. Date Signed: 11/04/2018 02:37 PM Electronically Signed By:Jolene Crowder RN
[2018-11-04] MEDS ORDERED: LIDOCAINE 1% 300 MG/30 ML SDV ONE (14:59)
[2018-11-04] MEDS ORDERED: fentaNYL 100 MCG/2 ML INJ ONE (15:00)
[2018-11-04] MEDS ORDERED: IOPAMIDOL (ISOVUE-300) 100 ML BTL ONE (15:00)
[2018-11-04] MEDS ORDERED: MIDAZOLAM 2 MG/2 ML VIAL ONE (15:00)
[2018-11-04] MEDS ORDERED: BUPIVACAINE 0.5% 30 ML SDV ONE (15:05)
[2018-11-04] MEDS ORDERED: LIDO/EPI 1% **for epidural** 30 ML SDV ONE (15:09)
--- NOTE | 2018-11-04 15:16 | HOSPPROG ---
Hospitalist Progress Note Assessment/Plan: * LLE cellulitis with sepsis -IV ancef - still has a long way to go - very severe -IV clindamycin added * 10 second cardiac pause - tachy/riley -to PCM today * Afib/flutter -digoxin -Eliquis * Morbid obesity BMI 46 * ARF - creatinine 3.2 - now improved * HTN -holding ARB/HCTZ Subjective: Brief LOC with pause today Objective: Vital Signs Temp Pulse Resp BP Pulse Ox 36.6 C 117 H 13 99/69 L 96 11/04/18 11:20 11/04/18 11:20 11/04/18 11:20 11/04/18 11:20 11/04/18 11:20 Laboratory Results 11/02/18 05:10 11/04/18 06:00 11/03/18 11/04/18 11/05/18 05:59 05:59 05:59 Intake Total 3894 1980 Output Total 3430 1875 800 Balance 464 105 -800 PT 13.9 SEC (12.0-15.0) 10/31/18 11:27 INR 1.05 (0.83-1.16) 10/31/18 11:27 d/w merry montejo - PCM today with Dr. Rhoades tele strips reviewed - 10 second pause - Physical Exam Constitutional: no apparent distress, appears nourished, not in pain Cardiovascular: regular rate and rhythym, no murmur, rub, or gallop Respiratory: no respiratory distress, no rales or rhonchi, clear to auscultation Gastrointestinal: normoactive bowel sounds, soft, non-tender abdomen, no palpable masses Skin: erythema, induration, rash, other (severe LLE cellulitis with severe edema , erythema, blister and lympagitic spread to groin) Neurologic: AAOx3, sensation intact bilaterally Psychiatric: interacting appropriately, not anxious, not encephalopathic, thought process linear ICD10 Worksheet Patient Problems: Problems Problem Status Onset Left leg cellulitis Acute Renal insufficiency Acute
--- NOTE | 2018-11-04 16:39 | PDCTREPORT ---
Cardiothoracic Procedure Rpt Cardiothoracic Procedure Report: Procedure: Implantation of dual-chamber pacemaker. Indications: Atrial flutter with spontaneous 12 sec pause associated with syncope. Special risk: Morbid obesity, lower extremity cellulitis Procedure after obtaining informed consent including additional risk of pneumothorax, pacemaker infection in the setting of morbid obesity, cellulitis patient brought to the cardiac catheterization lab in the fasting state. The left osiel pectoral region was sterilely prepped and draped. Subclavian venogram was performed. Using a 10 blade an incision was made below the clavicle. Using a combination of sharp blunt dissection the Bovie catheter pacemaker pocket was created and a bacitracin soaked sponge was placed in the pocket. Using 18 gauge percutaneous needle subclavian vein on the left was entered under fluoroscopy. Retained guidewire technique was used to advance 2 she has into the subclavian vein. Using tear-away sheaths leads were advanced into the RV apex, right atrial appendage. Appropriate sensitivities and thresholds were confirmed. The sheaths were torn away. The leads were secured to the fascia using 0 Ethibond x2. Using a 0 silk a pursestring was placed to allow hemostasis. Bacitracin soaked sponge was removed. The pocket was copiously irrigated. Generator was delivered to the field. Leads were attached to the generator. Set screws were tightened per industry standards after confirming serial numbers. The entire system was coiled into the pocket. Three-layer closure was used. Pressure dressing was applied the patient is taken to recovery for continued care. Device: Edora 8 DR-T [id number] Serial [id number] RA: Solia S53 [id number] Serial Number [id number] RV: Solia S60 [id number] Serial Number [id number] Right atrial sensing was 1.5 mV, flutter waves. Impedance is 526 Ohms. Right ventricular sensing was 6.6 mV, capture 0.7 volts with a pulse with a 0.4 milliseconds, impedance 799 Ohms. Conclusions: Successful implantation of a dual-chamber pacemaker. Chest x-ray pending. Antibiotics per Infectious Disease. Patient Problems: Problems Problem Status Onset Left leg cellulitis Acute Renal insufficiency Acute
[2018-11-04] MEDS: METOPROLOL TARTRATE 50 MG TAB PO SCH ×3 (17:44→23:09)
[2018-11-04] MEDS: ALTEPLASE 2 MG VIAL IVP PRN (20:27)
[2018-11-05] MEDS: ceFAZolin 2 GM/DEXTROSE 100 ML IV SCH ×4 (01:14→16:48)
[2018-11-05 04:51] LABS: PLATELET COUNT 282 10^3/uL (150-400)
[2018-11-05] MEDS: CLINDAMYCIN 600 MG/DEXTROSE 50 ML IV SCH ×3 (06:20→21:22)
[2018-11-05] MEDS: METOPROLOL TARTRATE 50 MG TAB PO SCH ×2 (08:23→21:21)
[2018-11-05] MEDS: ALTEPLASE 2 MG VIAL IVP PRN ×2 (08:41→08:47)
[2018-11-05] MEDS ORDERED: METOPROLOL TARTRATE 25 MG TAB PO ONE (09:45)
--- NOTE | 2018-11-05 10:14 | PCMIDPN ---
Assessment/Plan: Assessment/Plan: * Severe left lower extremity cellulitis: Clinical appearance highly suggestive of beta-hemolytic streptococci as etiology. Cellulitis gradually improving with less prominent findings over thigh with less intense erythema over lower extremity. Beginning to slough area of large confluent bulla with healthy underlying granulation tissue. Continue cefazolin and clindamycin with probable discontinuation of clindamycin tomorrow. Continue lower extremity elevation. * Leukocytosis: Persistent leukocytosis which likely will be slow to resolve. Doubt related to underlying soft tissue abscess given improvement in cellulitis which is atypical in that circumstance. Continue to follow over time. 11/05/18 10:08 Subjective: Patient status post pacemaker placement yesterday. Persistent lower extremity pain although less prominent without significant pain in thigh. Objective: Vital Signs Temp Pulse Resp BP Pulse Ox 36.8 C 122 H 22 H 126/74 H 94 11/05/18 08:00 11/05/18 08:00 11/05/18 08:00 11/05/18 08:00 11/05/18 08:00 Laboratory Results 11/05/18 04:05 11/05/18 04:05 11/04/18 11/05/18 11/06/18 05:59 05:59 05:59 Intake Total 1980 1300 200 Output Total 1875 0 2100 Balance 105 -750 -1900 C-Reactive Protein > 270.0 mg/L (<10.0) H 11/01/18 05:05 Cefazolin # 5 Clindamycin # 4 Blood cultures x2 no growth - Physical Exam General Appearance: alert, no apparent distress, non-toxic EENT: No scleral icterus, No thrush, No conjunctival petechiae Respiratory: lungs clear (Anterolaterally), No respiratory distress Cardiac/Chest: regular rate, rhythm, other (Pacemaker site dressed postoperatively) Extremities: inflammation (Left lower extremity shows less intense erythema over lower leg; large confluent bulla posteromedially with some slough beginning with healthy-appearing granulation underneath; few scattered petechia at margin of cellulitis; no palpable fluctuance; thigh erythema decreasing in extent and intensity with mild induration laterally) Abdomen: non-tender, No distended ICD10 Worksheet Patient Problems: Problems Problem Status Onset Left leg cellulitis Acute Renal insufficiency Acute
[2018-11-05] MEDS: DIGOXIN 125 MCG TAB PO SCH (10:36)
[2018-11-05] MEDS: HYDROCODONE/APAP 5/325 TAB PO PRN (10:39)
[2018-11-05] MEDS ORDERED: FUROSEMIDE 40 MG/4 ML VIAL IVP ONE ×2 (12:49→17:00)
[2018-11-05] MEDS ORDERED: POTASSIUM CL 10 MEQ TAB PO ONE ×2 (12:50→17:30)
--- NOTE | 2018-11-05 12:55 | PDCARPN ---
Cardiology Progress Note Chief Complaint: Patient reports pain left lower extremity. Assessment/Plan: Assessment: 68-year-old male with past history of hypertension, obesity, and likely untreated sleep apnea. Admitted 10/31/2018 sepsis secondary to left lower extremity cellulitis. Has also been in continuous atrial flutter RVR. Noted to have 10 sec episode of ventricular standstill when food got stuck, throat. He reporting episodes of syncope in the past and he in this type of set. Echocardiogram 11/03/2018 showing normal size, EF of 75% . LA and RA are normal size. No significant valvular heart disease. 11/04/2018: Biotronik dual chamber ppm implantation done right atrial and ventricular leads. 11/05/2018: Patient reporting feeling fatigue. Denies of any chest pressure or pain. Continues to have pain in left lower extremities. Started metoprolol last evening after device implantation, ventricular rate still between 100-120 BPM. Remains in a flutter with no other malignant arrhythmias or pauses. Device interrogation by [employer] rep today to showing normal function. Chest x -ray done this morning showing dual chamber pacemaker no delayed pneumothorax. Probable tiny effusions. Electrocardiogram showing a flutter with ventricular rate at 107 BPM, incomplete right bundle branch block. Single ventricular paced beat. WBC elevated at 19.7 (has been since hospital admission). H&H 12.5 in 36.9. Liver enzymes elevated, with AST 172, ALT at 82. Plan: 1. A-flutter: Rate continues to be elevated, despite being started on metoprolol. Continue on current digit dose. Increase metoprolol tartrate to 75 mg p.o. Twice daily. Will plan on restarting his Eliquis this evening. Digit level in a.m.. Will plan for rate control and anticoagulation at this time, as infection improved, if he does not convert back to sinus by himself, we may consider cardioversion, can be determined in outpatient setting. Consider sleep study in outpatient setting. 2. Sinus arrest: Noted 10 sec pause. Status post ppm implantation. Device check done today showing functioning within normal limits. Chest x-ray showing no delayed pneumothorax. 3. Transaminases: Elevated today. Possible due to sepsis and antibiotic therapy. Potential some diastolic heart failure could also be contributing (a- flutter with RVR, hyperdynamic LV and IVF for PPM implant). Will give 1x dose of IV lasix 40 mg. 4. Pleural effusion: Small pleural effusion noted on chest x-ray. IV Lasix as above. 5. HTN: Well controlled on current dose of metoprolol, home dose of losartan/ hydrochlorothiazide DC did due to MARK. 6. MARK: Cr on admission 3.2, today 1.1, cont to monitor 7. LLE cellulitis w/ sepsis: On antibiotics, defer to hospitalist and Infectious Disease 8. Morbid obesity 11/05/18 12:52 Subjective: Denies of any chest pressure or pain. Reports no SOB. Denies of any lightheadedness, near-syncope or syncopal. Reviewed/Discussed With: hospitalist (Dr Avilez), other (Dr Blanco) Objective: Vital Signs (8 Hrs) Temp Pulse Resp BP Pulse Ox 11/05/18 10:36 83 11/05/18 08:00 36.8 C 122 H 22 H 126/74 H 94 11/05/18 05:59 37.1 C 110 H 20 123/82 H 95 Intake/Output (24 Hrs) 11/04/18 11/05/18 11/06/18 05:59 05:59 05:59 Intake Total 1979 1300 200 Output Total 1874 2049 2099 Balance 105 -750 -1900 Intake: Oral (ml) 1979 800 200 IV Intake (ml) 400 IV Infused (ml) 100 ceFAZolin 2 GM/DEXTROSE 100 100 ml @ 200 mls/hr IV Q8H [facility] Rx#:[id number] Output: Urine (ml) 1874 2049 2100 Bedside Commode 1700 Urinal 1874 2049 400 Other: Intake Quantity Yes Sufficient Number of Voids Urinal 4 3 Number of Stools Bedside Commode 1 Urinal 1 Result Diagrams: 11/05/18 04:05 11/05/18 04:05 - Physical Exam Constitutional: no apparent distress, obese (Morbidly) Ears, Nose, Mouth, Throat: moist mucous membranes Cardiovascular: irregularly irregular (A flutter with RVR), jugular vein distention (5 cm), pulses symmetric bilat, No carotid bruit Peripheral Pulses: 1+: dorsalis-pedis (R), 2+: carotid (R), carotid (L) Respiratory: other (Diminished in bases bilateral, rhonchi or wheezing noted.) Gastrointestinal: normoactive bowel sounds Skin: warm, erythema (Left lower extremity), other (Pacemaker incision, left anterior chest, intact with Steri-Strips. No redness, swelling, or drainage.), No no edema (+3 left lower extremity) Neurologic: AAOx3 Psychiatric: cooperative, interactive, following commands ICD10 Worksheet Patient Problems: Problems Problem Status Onset Left leg cellulitis Acute Renal insufficiency Acute
--- NOTE | 2018-11-05 13:52 | ASMTCMCOM ---
CM Note CM Note Notes: CM spoke with PT. PT is recommending SNF. Pt accepting recommendations and has chosen for CM to send referrals to [facility] and [facility]. Referrals sent. D/C not expected this weekend. D/C Plan: SNF/Rehab Date Signed: 11/05/2018 01:51 PM Electronically Signed By:Lola Anthony
--- NOTE | 2018-11-05 16:52 | HOSPPROG ---
Hospitalist Progress Note Assessment/Plan: * LLE cellulitis with sepsis (POA) -IV ancef + IV clinda -slow improvement * 10 second cardiac pause - tachy/riley syndrome -s/p PCM * Afib/flutter -digoxin, metoprolol -Eliquis * Morbid obesity BMI 46 * ARF - creatinine 3.2 - now improved * HTN -holding ARB/HCTZ Subjective: no new complaints. Objective: Vital Signs Temp Pulse Resp BP Pulse Ox 36.8 C 114 H 16 135/80 H 95 11/05/18 16:00 11/05/18 16:00 11/05/18 16:00 11/05/18 16:00 11/05/18 16:00 Microbiology 10/31/18 12:50 Blood Culture - Final Blood Laboratory Results 11/05/18 04:05 11/05/18 04:05 11/04/18 11/05/18 11/06/18 05:59 05:59 05:59 Intake Total 1979 1300 200 Output Total 1874 2049 2099 Balance 105 -750 -1900 PT 13.9 SEC (12.0-15.0) 10/31/18 11:27 INR 1.05 (0.83-1.16) 10/31/18 11:27 EKG viewed, my personal interpretation is - aflutter, HR 107 cxr- negative d/w Dani Henry regarding cardiac plan - Physical Exam Constitutional: no apparent distress, appears nourished, not in pain Cardiovascular: regular rate and rhythym, no murmur, rub, or gallop Respiratory: no respiratory distress, no rales or rhonchi, clear to auscultation Gastrointestinal: normoactive bowel sounds, soft, non-tender abdomen, no palpable masses Skin: erythema, fluctuance, rash, other (lymphagitis spread to groin, less beefy red), No mottled Neurologic: AAOx3, sensation intact bilaterally Psychiatric: interacting appropriately, not anxious, not encephalopathic, thought process linear ICD10 Worksheet Patient Problems: Problems Problem Status Onset Left leg cellulitis Acute Renal insufficiency Acute
[2018-11-05] MEDS: APIXABAN 5 MG TAB PO SCH (21:21)
[2018-11-06] MEDS: HYDROCODONE/APAP 5/325 TAB PO PRN (00:41)
[2018-11-06] MEDS: ceFAZolin 2 GM/DEXTROSE 100 ML IV SCH ×3 (00:41→17:05)
[2018-11-06] MEDS: CLINDAMYCIN 600 MG/DEXTROSE 50 ML IV SCH (05:26)
[2018-11-06 05:44] LABS: PLATELET COUNT 278 10^3/uL (150-400)
[2018-11-06] MEDS: APIXABAN 5 MG TAB PO SCH ×2 (09:30→21:51)
[2018-11-06] MEDS: DIGOXIN 125 MCG TAB PO SCH (09:31)
[2018-11-06] MEDS: METOPROLOL TARTRATE 50 MG TAB PO SCH ×2 (09:31→21:52)
--- NOTE | 2018-11-06 11:05 | SOAPPROG ---
[facility] Progress Note Assessment/Plan: 1. A-flutter - Pt presented with A-flutter in the setting of cellulitis. The onset is not entirely clear given patient is relatively asymptomatic with respect to his atrial flutter. He is currently rate controlled and anticoagulated with metoprolol, digoxin, and eliquis. Digoxin level on 11/06/18 was 1.0. Anticipate LILLIANA/CV prior to discharge. 2. Sinus arrest - Patient had a 10 sec pause in the setting of coughing. He is status post ppm implantation on 11/04/18. Device check and CXR are with in normal limits. 3. Pleural effusion - Small pleural effusion noted on chest x-ray. Suspect a component of diastolic CHF. --> lasix 20 mg daily 4. HTN - Well controlled --> Continue current therapy. 5. MARK - Cr back to baseline 6. LLE cellulitis w/ sepsis: On antibiotics, defer to hospitalist and Infectious Disease Subjective: No chest pain No orthopnea or PND edema improved Objective: Vital Signs Temp Pulse Resp BP Pulse Ox 36.8 C 99 20 118/93 H 96 11/06/18 07:58 11/06/18 07:58 11/06/18 07:58 11/06/18 07:58 11/06/18 07:58 Microbiology 10/31/18 12:50 Blood Culture - Final Blood Laboratory Results 11/06/18 05:25 11/06/18 05:25 11/05/18 11/06/18 11/07/18 05:59 05:59 05:59 Intake Total 1300 1550 Output Total 2050 6250 100 Balance -750 -4700 -100 PT 13.9 SEC (12.0-15.0) 10/31/18 11:27 INR 1.05 (0.83-1.16) 10/31/18 11:27 Physical Exam - Physical Exam General Appearance: alert, no apparent distress Respiratory: lungs clear Cardiac/Chest: irregularly irregular Abdomen: non-tender, soft Extremities: other (Left greater than R lower extremity edeam. LLE with cellulitis) Neuro/Psych: oriented x 3 ICD10 Worksheet Patient Problems: Problems Problem Status Onset Left leg cellulitis Acute Renal insufficiency Acute
--- NOTE | 2018-11-06 15:09 | PCMIDPN ---
Assessment/Plan: Assessment/Plan: * Severe left lower extremity cellulitis: Clinical appearance highly suggestive of beta-hemolytic streptococci as etiology. Continued improvement in cellulitic findings with significantly intense erythema below knee. Mild residual edema and erythema over medial and lateral thigh independent regions. Based on improvement, will discontinue clindamycin and continue with cefazolin monotherapy. Continue to elevate right lower extremity. * Leukocytosis: White blood cell count decreasing with time with plans to continue following as cellulitis resolved. 11/06/18 15:07 Subjective: Patient feels significantly better with decreased right lower extremity pain. No pain remaining in thigh. Objective: Vital Signs Temp Pulse Resp BP Pulse Ox 37.3 C 81 14 120/84 H 92 11/06/18 11:06 11/06/18 11:06 11/06/18 11:06 11/06/18 11:06 11/06/18 11:06 Microbiology 10/31/18 12:50 Blood Culture - Final Blood Laboratory Results 11/06/18 05:25 11/06/18 05:25 11/05/18 11/06/18 11/07/18 05:59 05:59 05:59 Intake Total 1300 1550 Output Total 2050 6250 250 Balance -750 -4700 -250 C-Reactive Protein > 270.0 mg/L (<10.0) H 11/01/18 05:05 Cefazolin # 6 Clindamycin # 5 Blood cultures x2 no growth - Physical Exam General Appearance: alert, no apparent distress EENT: No scleral icterus Respiratory: lungs clear, No respiratory distress Cardiac/Chest: regular rate, rhythm, other (Pacemaker site dressed) Extremities: inflammation (Intensity of erythema significantly less below left knee with additional areas of denuded bulla present; large confluent bulla deflated ink over anterior surface; faint erythema over posterior medial and posterolateral thigh and edema primarily independent regions without significant tenderness) Abdomen: non-tender, No distended - Time Spent With Patient Time Spent with Patient: greater than 25 minutes Time Spent with Patient: Greater than 25 minutes spent on this patients care, greater than 50% of time spent counseling, educating, and coordinating care regarding the above mentioned plan. ICD10 Worksheet Patient Problems: Problems Problem Status Onset Left leg cellulitis Acute Renal insufficiency Acute
[2018-11-06] MEDS: FUROSEMIDE 20 MG TAB PO SCH (15:18)
--- NOTE | 2018-11-06 16:35 | HOSPPROG ---
Hospitalist Progress Note Assessment/Plan: * LLE cellulitis with sepsis (POA) -IV ancef -slow improvement * 10 second cardiac pause - tachy/riley syndrome -s/p PCM * Afib/flutter -digoxin, metoprolol -Eliquis * Morbid obesity BMI 46 * ARF - creatinine 3.2 - now improved * HTN -holding ARB/HCTZ * Acute diastolic CHF -Lasix added Subjective: No new complaints. Objective: Vital Signs Temp Pulse Resp BP Pulse Ox 36.9 C 103 H 18 135/98 H 94 11/06/18 15:29 11/06/18 15:29 11/06/18 15:29 11/06/18 15:29 11/06/18 15:29 Microbiology 10/31/18 12:50 Blood Culture - Final Blood Laboratory Results 11/06/18 05:25 11/06/18 05:25 11/05/18 11/06/18 11/07/18 05:59 05:59 05:59 Intake Total 1300 1550 200 Output Total 2050 6250 500 Balance -750 -4700 -300 PT 13.9 SEC (12.0-15.0) 10/31/18 11:27 INR 1.05 (0.83-1.16) 10/31/18 11:27 - Physical Exam Constitutional: no apparent distress, appears nourished, not in pain Cardiovascular: regular rate and rhythym, no murmur, rub, or gallop Respiratory: no respiratory distress, no rales or rhonchi, clear to auscultation Gastrointestinal: normoactive bowel sounds, soft, non-tender abdomen, no palpable masses Skin: other (slowly improving, massive drainage as blisters are opening up) Neurologic: AAOx3, sensation intact bilaterally Psychiatric: interacting appropriately, not anxious, not encephalopathic, thought process linear ICD10 Worksheet Patient Problems: Problems Problem Status Onset Left leg cellulitis Acute Renal insufficiency Acute
[2018-11-07] MEDS: ceFAZolin 2 GM/DEXTROSE 100 ML IV SCH ×4 (00:22→23:46)
[2018-11-07] MEDS: HYDROCODONE/APAP 5/325 TAB PO PRN ×2 (05:14→16:39)
[2018-11-07] MEDS: DIGOXIN 125 MCG TAB PO SCH (09:20)
[2018-11-07] MEDS: METOPROLOL TARTRATE 50 MG TAB PO SCH ×2 (09:20→20:52)
[2018-11-07] MEDS: APIXABAN 5 MG TAB PO SCH ×2 (09:20→20:52)
[2018-11-07] MEDS: FUROSEMIDE 20 MG TAB PO SCH (09:21)
--- NOTE | 2018-11-07 09:21 | PCMIDPN ---
Assessment/Plan: Assessment/Plan: * Severe left lower extremity cellulitis: Erythema slightly more prominent today although patient had just gone on walk in some of this may be related to recent dependency of left lower extremity. Doubt findings related to discontinuation of clindamycin. Bulla continue to deflate and denude over lower leg. Will continue cefazolin and lower extremity elevation. Reviewed with Cardiology plans for LILLIANA with cardioversion tomorrow for atrial flutter - do not think lower extremity cellulitis should modify risk of this procedure. * Leukocytosis: Will repeat tomorrow to assess trend. 11/07/18 09:18 Subjective: Patient with less left lower extremity pain. Notes redness was significantly decreased this a.m. but now increased after going on walk around the unit. Plans for LILLIANA with cardioversion tomorrow for atrial flutter. Objective: Vital Signs Temp Pulse Resp BP Pulse Ox 36.8 C 84 18 104/71 97 11/07/18 08:00 11/07/18 08:00 11/07/18 08:00 11/07/18 08:00 11/07/18 08:00 Laboratory Results 11/06/18 05:25 11/06/18 05:25 11/06/18 11/07/18 11/08/18 05:59 05:59 05:59 Intake Total 1550 1810 Output Total 6250 1250 Balance -4700 560 C-Reactive Protein > 270.0 mg/L (<10.0) H 11/01/18 05:05 Cefazolin # 7 Blood cultures x2 no growth Laboratory Tests 11/06/18 05:25 Total Bilirubin 1.2 AST 119 H ALT 69 Alkaline Phosphatase 157 H - Physical Exam General Appearance: alert, no apparent distress EENT: No scleral icterus, No thrush Respiratory: lungs clear, No respiratory distress Cardiac/Chest: regular rate, rhythm, systolic murmur Extremities: inflammation (Erythema over lower extremity and medial thigh slightly more prominent today; no tenderness over thigh with tenderness localized primarily over anterolateral superior portion of erythema below knee; large confluent bulla deflating with areas of denuded skin present, no areas of fluctuance; erythema and thigh most prominent along dependent regions; erythema posteriorly along calf significantly improved with some desquamation of skin) ICD10 Worksheet Patient Problems: Problems Problem Status Onset Left leg cellulitis Acute Renal insufficiency Acute
--- NOTE | 2018-11-07 09:44 | PDCARPN ---
Cardiology Progress Note Chief Complaint: Patient reporting pain in left lower extremity, but feels this is improved. Assessment/Plan: Assessment: 68-year-old male with past history of hypertension, obesity, and likely untreated sleep apnea. Admitted 10/31/2018 sepsis secondary to left lower extremity cellulitis. Has also been in continuous atrial flutter RVR. Noted to have 10 sec episode of ventricular standstill when food got stuck, throat. He reporting episodes of syncope in the past and he in this type of set. Echocardiogram 11/03/2018 showing normal size, EF of 75% . LA and RA are normal size. No significant valvular heart disease. 11/04/2018: Biotronik dual chamber ppm implantation done right atrial and ventricular leads. Patient continues to be in a flutter. Rates are controlled at rest, but with any exertion, heart rate can jump up to 160 BPM. He denies of any chest pain pressure symptoms suggesting of ischemia. O>I, weight is mildly down. He reports no shortness of breath. Denies of any orthopnea. Plan: 1. A-flutter: Rate is controlled at rest on current dose of metoprolol and digoxin. Recent digoxin level was within normal limits. Noted significant elevated rates with any exertion. He is on anticoagulation of Eliquis. We will plan for him to undergo LILLIANA cardioversion tomorrow morning. This will be performed by Dr. Willard. Risks and benefits were explained to the patient, he verbalizes understanding is wanting to proceed. No change in current medication regime at this time. Consider sleep study in outpatient setting. 2. Sinus arrest: Noted 10 sec pause. Status post ppm implantation. Device check showing functioning within normal limits. Postop chest x-ray showing no delayed pneumothorax. 3. Transaminases: Possible due to sepsis and antibiotic therapy. Potential some diastolic heart failure could also be contributing (a-flutter with RVR, hyperdynamic LV and IVF for PPM implant). Improved per yesterday's laboratory studies, after IV Lasix given on Wednesday. Has been started on oral Lasix. Will plan on repeating CMP in a.m.. 4. Pleural effusion: Small amount noted on postoperative chest x-ray on 2018. IV Lasix given on 11/05, Started on oral Lasix yesterday. Continue to monitor. 5. HTN: Well controlled on current dose of metoprolol, home dose of losartan/ hydrochlorothiazide DC did due to MARK. 6. MARK: Cr on admission 3.2, within normal limits yesterday. Continue to monitor. 7. LLE cellulitis w/ sepsis: On antibiotics, defer to hospitalist and Infectious Disease 8. Morbid obesity 11/07/18 09:44 Subjective: He denies of any chest pressure or pain. Does note some with SOB with exertion , with elevated heart rates, noted to be up to 160 BPM. Denies of any lightheadedness, near-syncope or syncopal events. Reports no orthopnea, PND. Reviewed/Discussed With: other (Dr Willard and Dr Arguello) Objective: Vital Signs (8 Hrs) Temp Pulse Resp BP Pulse Ox 11/07/18 08:00 36.8 C 84 18 104/71 97 11/07/18 04:00 36.7 C 83 20 102/74 96 Intake/Output (24 Hrs) 11/06/18 11/07/18 11/08/18 05:59 05:59 05:59 Intake Total 1550 1810 Output Total 6250 1250 Balance -4700 560 Intake: Oral (ml) 1120 1500 IV Infused (ml) 430 310 Clindamycin 600 mg/ 150 Dextrose 50 ml @ 100 mls/ hr IV Q8HRS RONNIE Rx#: [id number] Ns 1,000 ml @ 125 mls/hr 80 IV CONT RONNIE Rx#: [id number] ceFAZolin 2 GM/DEXTROSE 200 310 100 ml @ 200 mls/hr IV Q8H RONNIE Rx#:[id number] Output: Urine (ml) 6250 1250 Bedside Commode 2500 100 Urinal 3750 1150 Other: Weight 137.2 kg Number of Voids Toilet 1 Urinal 1 Number of Stools Bedside Commode 1 Toilet 1 Urinal 1 Result Diagrams: 11/06/18 05:25 11/06/18 05:25 - Physical Exam Constitutional: no apparent distress, obese (Morbidly) Ears, Nose, Mouth, Throat: moist mucous membranes Cardiovascular: no rubs, no gallops, systolic murmur (1/6 systolic murmur left sternal border), irregularly irregular (A flutter on monitor), jugular vein distention (4-5 cm above sternal notch at a 45 degree angle), No carotid bruit Peripheral Pulses: 1+: dorsalis-pedis (R), 2+: carotid (R), carotid (L) Respiratory: other (Clear but diminished in bases bilateral, no rhonchi, rales, or wheezing noted.) Gastrointestinal: normoactive bowel sounds, no masses, other (Obese) Skin: warm, erythema (Left lower extremity), other (Pacemaker pocket, left anterior chest, dressing clean dry intact with no redness, swelling, drainage, ecchymosis or hematoma.), No no edema (+2 to 3 peripheral edema left lower extremity) Neurologic: AAOx3 Psychiatric: cooperative, interactive, following commands ICD10 Worksheet Patient Problems: Problems Problem Status Onset Left leg cellulitis Acute Renal insufficiency Acute
--- NOTE | 2018-11-07 14:33 | ASMTCMCOM ---
CM Note CM Note Notes: 11/07/3018 Case Management Note Discussed pt during rounds this morning. Pt to have cardioversion tomorrow. Pt chose [facility] in [place] for SNF rehab. Faxed updates to [facility]. Requested auth. Case Management d/c poc: [facility] SNF rehab pending auth. Case Management to follow. Date Signed: 11/07/2018 02:32 PM Electronically Signed By:Jolene Crowder RN
--- NOTE | 2018-11-07 16:35 | HOSPPROG ---
Hospitalist Progress Note Assessment/Plan: * LLE cellulitis with sepsis (POA) -IV ancef -slow improvement -per Dr. Arguello likely discharge with IV abx as not ready for PO * 10 second cardiac pause - tachy/riley syndrome -s/p PCM * Afib/flutter -digoxin, metoprolol -Eliquis -poor rate control - cardioversion in am * Morbid obesity BMI 46 * ARF - creatinine 3.2 - now improved * HTN -holding ARB/HCTZ * Acute diastolic CHF -Lasix added Possible DC to SNF tomorrow after cardioversion, on IV antibiotics Subjective: feeling ok. Objective: Vital Signs Temp Pulse Resp BP Pulse Ox 36.8 C 82 18 109/69 96 11/07/18 11:56 11/07/18 11:56 11/07/18 11:56 11/07/18 11:56 11/07/18 11:56 Laboratory Results 11/06/18 05:25 11/06/18 05:25 11/06/18 11/07/18 11/08/18 05:59 05:59 05:59 Intake Total 1550 1810 550 Output Total 6250 1250 300 Balance -4700 560 250 PT 13.9 SEC (12.0-15.0) 10/31/18 11:27 INR 1.05 (0.83-1.16) 10/31/18 11:27 d/w Dr. Arguello and Dani Figueroa - cardioversion tomorrow morning and then hopefully to SNF with ongoing IV antibiotics tele reviewed - aflutter with some fast rates - Physical Exam Constitutional: no apparent distress, appears nourished, not in pain Cardiovascular: no murmur, rub, or gallop, irregularly irregular, edema Respiratory: no respiratory distress, no rales or rhonchi, clear to auscultation Gastrointestinal: normoactive bowel sounds, soft, non-tender abdomen, no palpable masses Skin: fluctuance, rash, other (massive blister with weeping wound, erythema to groin slowly improving) Neurologic: AAOx3, sensation intact bilaterally Psychiatric: interacting appropriately, not anxious, not encephalopathic, thought process linear ICD10 Worksheet Patient Problems: Problems Problem Status Onset Left leg cellulitis Acute Renal insufficiency Acute
--- NOTE | 2018-11-07 17:53 | WOCRNPDOC ---
WOCRN Advanced Assessment Note - Skin Integrity Problem, Advanced Assess Left Lower Leg Dressing Type: Adaptic Touch, Mepilex Transfer Dressing Description: Intact, Shadowed Exudate Amount: Minimal Exudate Color: Yellow, Green Exudate Characteristic(s): Cloudy, Purulent Integumentary Issue Intervention: Dressing Changed Sushma Wound Tissue: Erythema, Hot, Swollen, Erythema Marked by Wound RN, Painful/ Tender Wound Bed Constitution: Mixed Loose & Adhered Slough/Eschar (30%), De-roofed Purulent Blister (majority of wound), Draining Serous Blister (at 6 oclock ) Site Measurement - Head-to-Toe Length X Width X Depth (cm): 26.5x47x0.1 Skin Integrity Problem Comment: Desquamating, large, circumferential bulla, over gaiter area of patient's left lower leg. Yellow green drainage on dressings resembles pseudomonas. Older open areas where the epithelium had previously sloughed off were dry and necrotic. Much of the wound however, had intact but sloughing epithelium with necrotic tissue beneath. The wound was cleaned with copious ns and gauze. Mechanical debridement of loose epithelium and necrotic tissue performed. Covered wounds with saline moistened gauze. All questions answered. Aubrey SALAZAR and Amina SALAZAR in room for care. Wound care will follow.
[2018-11-08 05:35] LABS: PLATELET COUNT 292 10^3/uL (150-400)
[2018-11-08 05:48] LABS: INR 1.19 (0.83-1.16); PROTIME(PATIENT) 14.6 SEC (12.0-15.0)
[2018-11-08] MEDS ORDERED: ATROPINE SULFATE 1 MG/10 ML SYR IVP ONE (06:00)
[2018-11-08] MEDS ORDERED: NS 1,000 ML IV ONE (06:00)
[2018-11-08] MEDS: METOPROLOL TARTRATE 50 MG TAB PO SCH ×2 (08:40→20:47)
[2018-11-08] MEDS: FUROSEMIDE 20 MG TAB PO SCH (08:40)
[2018-11-08] MEDS: APIXABAN 5 MG TAB PO SCH ×2 (08:40→20:47)
[2018-11-08] MEDS: ceFAZolin 2 GM/DEXTROSE 100 ML IV SCH ×2 (08:44→16:38)
[2018-11-08] MEDS: HYDROCODONE/APAP 5/325 TAB PO PRN ×3 (08:50→17:42)
--- NOTE | 2018-11-08 10:07 | PCMIDPN ---
Assessment/Plan: Assessment/Plan: * Severe left lower extremity cellulitis: Less prominent erythema today with clean based denuded skin at site of prior bulla. Clinical presentation and course consistent with severe streptococcal infection. Minimal serous appearing drainage from residual bulla/denuded skin. Continues to slowly improve with anticipation that cellulitis will be slow to resolve based on severity. Will continue cefazolin with duration dependent on clinical course. Appreciate wound care assistance with ongoing care of denuded skin and wound care notes from yesterday reviewed. Continue lower extremity elevation. Side effects of cefazolin reviewed with patient. Plan weekly laboratories on IV cefazolin. Discussed with Hospital Service with possible transition to rehabilitation facility for continuing care. Will arrange for follow-up my office next week. * Leukocytosis: Gradually decreasing white blood cell count now at 10,000 today. Time spent, greater than 35 min, which greater than half was spent in education/ counseling/coordination of care related to severe left lower extremity cellulitis and plan of care. Care was coordinated with hospitalist service, nursing staff, and case management. 11/08/18 10:03 Subjective: Patient with decreasing left lower extremity pain. Erythema less prominent today. Objective: Vital Signs Temp Pulse Resp BP Pulse Ox 36.7 C 83 10 L 119/77 90 L 11/08/18 07:03 11/08/18 08:40 11/08/18 07:03 11/08/18 08:40 11/08/18 07:03 Laboratory Results 11/08/18 05:25 11/08/18 05:25 11/07/18 11/08/18 11/09/18 05:59 05:59 05:59 Intake Total 1810 2060 Output Total 1250 1700 125 Balance 560 360 -125 C-Reactive Protein > 270.0 mg/L (<10.0) H 11/01/18 05:05 Cefazolin # 8 Blood cultures x2 no growth Laboratory Tests 11/08/18 05:25 Total Bilirubin 1.0 AST 74 H ALT 57 Alkaline Phosphatase 120 Albumin 2.6 L - Physical Exam General Appearance: alert, no apparent distress, non-toxic EENT: No scleral icterus, No thrush Respiratory: lungs clear, No respiratory distress Cardiac/Chest: regular rate, rhythm Extremities: inflammation (Distribution of erythema without interval change; intensity of erythema along medial thigh and lower leg less prominent; confluent bulla significantly smaller in size after debridement by remedial reading teacher ; remains warm and tender primarily superomedially) Skin: No rash - Line/s RUE PICC Lines: No drainage, No erythema ICD10 Worksheet Patient Problems: Problems Problem Status Onset Left leg cellulitis Acute Renal insufficiency Acute
--- NOTE | 2018-11-08 10:12 | PDIAF ---
- Diagnosis Diagnosis: Severe left lower extremity cellulitis Code Status: Full Code - Medication Management [employer] Antibiotics: Cefazolin 2 g IV q.8 hours Care Home Antibiotic Stop Date: 11/15/18 Discharge Medications: electronically signed and located in the Home Medication List. PICC Care - Routine: Yes - Labs/Radiology CBC w/diff Date: 11/10/18 (Weekly Q ) CMP Date: 11/10/18 (Weekly Q ) - Follow Up Care Current Providers and Referrals: Steve Telles MD [Primary Care Provider] - As per Instructions Miguelito Rhoades MD [Medical Doctor] - Enrico Arguello MD [Medical Doctor] - 11/15/18 2:00 pm
--- NOTE | 2018-11-08 11:38 | PDANEPAE ---
ANE History of Present Illness 68 yo for chivo/cv ANE Past Medical History - Cardiovascular History Hx Hypertension: Yes Hx Arrhythmias: Yes Hx Coronary Artery / Peripheral Vascular Disease: No Hx CHF / Valvular Disease: No Hx Palpitations: No - Pulmonary History Hx Oxygen in Use at Home: No Hx Sleep Apnea: Yes - Endocrine History Hx Diabetes: No ANE Review of Systems Review of Systems: - Exercise capacity METS (RN): 3 METS - Pacemaker Pacemaker Manager Regional: Biotronik Pacemaker Model: Edora 8DR-T Pacemaker Mode: DDD ANE Patient History - Allergies Allergies/Adverse Reactions: No Known Allergies Allergy (Verified 10/31/18 13:07) - Home Medications Home Medications: Losartan/Hydrochlorothiazide [Losartan-Hctz 100-25 mg Tab] 1 each PO DAILY 10/31 [Last Taken 10/31/18] - Smoking Hx Smoking Status: Never smoked - Alcohol Use Alcohol Use: Rarely ANE Labs/Vital Signs - Labs Result Diagrams: 11/08/18 05:25 11/08/18 05:25 - Vital Signs Blood Pressure: 119/77 Heart Rate: 83 Respiratory Rate: 10 O2 Sat (%): 90 Height: 5 ft 10 in Weight: 137.3 kg ANE Physical Exam - Airway Neck exam: FROM Mallampati Score: Class 2 Mouth exam: normal dental/mouth exam - Pulmonary Pulmonary: no respiratory distress - Cardiovascular Cardiovascular: regular rate and rhythym - ASA Status ASA Status: III ANE Anesthesia Plan Anesthesia Plan: GA with mask
[2018-11-08] MEDS ORDERED: PROPOFOL 200 MG/20 ML VIAL ONE (11:40)
--- NOTE | 2018-11-08 11:53 | PDHPUP ---
History & Physical Update H&P update statement: This history and physical update is based on an assessment of the patient which was completed after admission or registration (within 24 hours), but prior to the surgery/procedure. H&P update: H&P reviewed & patient examined, no change in patient's condition since H&P completed
--- NOTE | 2018-11-08 12:06 | PDTEE1 ---
LILLIANA Cardioversion Procedure Procedure: electrical cardioversion Indications: other (atrial flutter) Procedural Details: Pads were placed in anterior-posterior position. LILLIANA probe was advanced and standard images obtained. There is no evidence of left atrial or left atrial appendage thrombus. Synchronized cardioversion attempt #1: other (70) Results: normal sinus rhythm Conclusions: successful LILLIANA cardioversion Conclusion Comment: At the time of implant, atrial thresholds were not tested. The pacemaker was interrogated immediately following the procedure. P-waves were noted to be 1.4 mV. Capture was 0.9 volts at 0.4 milliseconds in the atrium. Patient Problems: Problems Problem Status Onset Left leg cellulitis Acute Renal insufficiency Acute
[2018-11-08] MEDS ORDERED: MIDAZOLAM 2 MG/2 ML VIAL IVP ONE (12:11)
--- NOTE | 2018-11-08 12:19 | POSTANESTH ---
Post Anesthetic Evaluation Cardiovascular Status: Normal, Stable Respiratory Status: Normal, Stable Level of Consciousness/Mental Status: Can Participate in Eval Pain Control: Adequate, Prn Tx Ordered Nausea/Vomiting Control: Adequate, Prn Tx Ordered Complications Possibly Related to Anesthesia: None Noted
--- NOTE | 2018-11-08 12:23 | PDCARPN ---
Cardiology Progress Note Chief Complaint: Patient reports continued to have pain in left lower extremity, but feels this is improving. Assessment/Plan: Assessment: 68-year-old male with past history of hypertension, obesity, and likely untreated sleep apnea. Admitted 10/31/2018 sepsis secondary to left lower extremity cellulitis. Has also been in continuous atrial flutter RVR. Noted to have 10 sec episode of ventricular standstill when food got stuck, throat. He reporting episodes of syncope in the past and he in this type of set. Echocardiogram 11/03/2018 showing normal size, EF of 75% . LA and RA are normal size. No significant valvular heart disease. 11/04/2018: Biotronik dual chamber ppm implantation done right atrial and ventricular leads. 11/08/2018: Patient denies of any chest pain pressure or shortness of breath. He did undergo LILLIANA cardioversion today, with successfully transition back into sinus rhythm. Laboratory studies today well he noting potassium 4.3, BUN 20, creatinine 0.8. AST down to 74, ALT 57, alkaline phosphate within normal limits at when plan. Digoxin 0.5. Continuous cardiac monitoring overnight showing a flutter with no malignant arrhythmias or pauses. Occasional PVC. Weight unchanged, output remains greater than in. Plan: 1. A-flutter: The LILLIANA cardioversion done today, with successful transition back into sinus rhythm. Continue on current dose of digoxin and metoprolol. With prolonged run of atrial flutter, I have asked EP services to have consult, for recommendations of long-term care. He is continue on anticoagulation. Patient should be evaluated for sleep apnea an outpatient statin. 2. Sinus arrest: Noted 10 sec pause. Status post ppm implantation. Device check showing functioning within normal limits. Postop chest x-ray showing no delayed pneumothorax. 3. Transaminases: Possible due to sepsis and antibiotic therapy. Potential some diastolic heart failure could also be contributing (a-flutter with RVR, hyperdynamic LV and IVF for PPM implant). Improvement from yesterday. Continue on oral Lasix. 4. Pleural effusion: Small amount noted on postoperative chest x-ray on 2018. Continue on oral Lasix. On her continue to monitor her 5. HTN: Well controlled on current dose of metoprolol, home dose of losartan/ hydrochlorothiazide DC did due to MARK. 6. MARK: Cr on admission 3.2, currently within normal limits. 7. LLE cellulitis w/ sepsis: On antibiotics, defer to hospitalist and Infectious Disease 8. Morbid obesity 11/08/18 12:23 Subjective: Denies of any chest pressure, pain, or symptoms suggesting of ischemia. Reports no shortness of breath. Denies of any lightheadedness, near-syncope or syncopal events. Reviewed/Discussed With: hospitalist (Dr Avilez), other (Dr Geiger, Dr Willard and Dr Tan) Objective: Vital Signs (8 Hrs) Temp Pulse Resp BP Pulse Ox 11/08/18 11:38 83 10 L 119/77 90 L 11/08/18 08:40 83 119/77 11/08/18 07:03 36.7 C 81 10 L 119/77 90 L Intake/Output (24 Hrs) 11/07/18 11/08/18 11/09/18 05:59 05:59 05:59 Intake Total 1810 2060 135 Output Total 1250 1700 325 Balance 560 360 -190 Intake: Oral (ml) 1500 1950 IV Intake (ml) 25 IV Infused (ml) 310 110 110 ceFAZolin 2 GM/DEXTROSE 310 110 110 100 ml @ 200 mls/hr IV Q8H [facility] Rx#:[id number] Output: Urine (ml) 1250 1700 325 Bedside Commode 100 700 Urinal 1150 1000 325 Other: Weight 137.2 kg 137.3 kg 137.3 kg Intake Quantity Yes Sufficient Number of Voids Bedside Commode 1 Toilet 1 Urinal 1 Number of Stools Toilet 1 1 Result Diagrams: 11/08/18 05:25 11/08/18 05:25 - Physical Exam Constitutional: WDWN, obese (Morbidly) Ears, Nose, Mouth, Throat: moist mucous membranes Cardiovascular: regular rate and rhythm (Sinus rhythm on the monitor status post cardioversion.), no murmurs (1 to 2/6 left sternal border.), pulses symmetric bilat, No jugular vein distention, No carotid bruit Peripheral Pulses: 1+: dorsalis-pedis (R), 2+: carotid (R), carotid (L) Respiratory: clear to auscultate bilat, no crackles, no wheezes, reduced air movement Gastrointestinal: normoactive bowel sounds Skin: warm, erythema (Left lower extremity), other (Dressing to left lower extremity clean dry and intact. Pacemaker insertion site, left anterior chest, dressing CDI, with no redness, swelling, ecchymosis, or hematoma.), No no edema (+3 peripheral edema left lower extremity) Neurologic: AAOx3 Psychiatric: cooperative, interactive, following commands ICD10 Worksheet Patient Problems: Problems Problem Status Onset Left leg cellulitis Acute Renal insufficiency Acute
[2018-11-08] MEDS ORDERED: DEXMEDETOMIDINE HCL 400 MCG in NS 100 ML IV SCH (12:30)
--- NOTE | 2018-11-08 14:11 | PDIAF ---
- Diagnosis Diagnosis: Severe left lower extremity cellulitis Code Status: Full Code - Medication Management [employer] Antibiotics: Cefazolin 2 g IV q.8 hours Fdc Antibiotic Stop Date: 11/15/18 Discharge Medications: electronically signed and located in the Home Medication List. PICC Care - Routine: Yes - Orders Services needed: Physical Therapy, Occupational Therapy Diet Recommendation: no restrictions on diet Wound Care Instructions: Change dressing to left lower leg daily and as needed. Keep leg elevated as much as possible. 1. Flush wounds well with NS and wipe clean with gauze. 2. Shake bottle of Puracyn gel (available from glass cut off tender ) and then apply to yellow/brown dried areas of wound. 3. Cover wound bed with mepilex 4x4 (or 6x6 supplied by wound care) or Mepilex XT 4x4 (also supplied by wound care). 4. Secure with kerlix and netting. Josey ROTHMAN Additional Instructions: Outpatient sleep study recommended - Labs/Radiology CBC w/diff Date: 11/10/18 (Weekly Q ) CMP Date: 11/10/18 (Weekly Q ) - Follow Up Care Current Providers and Referrals: Enrico Arguello MD [Medical Doctor] - 11/15/18 2:00 pm Steve Telles MD [Primary Care Provider] - As per Instructions Miguelito Rhoades MD [Medical Doctor] -
--- NOTE | 2018-11-08 14:40 | ASMTCMCOM ---
CM Note CM Note Notes: Spoke with Jenni from [employer] who states they do not have insurance auth on patient and don't expect it until tomorrow. Patient cannot discharge until insurance auth for SNF rehab has been secured. CM will follow. Date Signed: 11/08/2018 02:40 PM Electronically Signed By:Hayley Hugo LCSW
[2018-11-08] MEDS: DIGOXIN 125 MCG TAB PO SCH (15:03)
--- NOTE | 2018-11-08 15:11 | CPEKG ---
Test Reason : OPEN Blood Pressure : / mmHG Vent. Rate : 125 BPM Atrial Rate : 273 BPM P-R Int : 132 ms QRS Dur : 117 ms QT Int : 341 ms P-R-T Axes : 000 045 001 degrees QTc Int : 492 ms Atrial flutter with 2:1 AV block Incomplete right bundle branch block Consider Inferior infarct, age indeterminate Confirmed by Damian Willard ([id number]) on 11/08/2018 3:11:24 PM Referred By: Scarlet Lehman Confirmed By:Damian Willard
--- NOTE | 2018-11-08 16:07 | HOSPPROG ---
Hospitalist Progress Note Assessment/Plan: * LLE cellulitis with sepsis (POA) -IV ancef -slow improvement -per Dr. Arguello discharge with IV abx as not ready for PO * 10 second cardiac pause - tachy/riley syndrome -s/p PCM * Afib/flutter -digoxin, metoprolol -Eliquis -poor rate control - s/p cardioversion - now NSR * Morbid obesity BMI 46 * ARF - creatinine 3.2 - now improved * HTN -DC ARB/HCTZ * Acute diastolic CHF -Lasix added Stable for discharge but we do not have insurance auth for SNF Subjective: feeling ok Objective: Vital Signs Temp Pulse Resp BP Pulse Ox 36.7 C 91 16 105/75 95 11/08/18 15:00 11/08/18 15:03 11/08/18 15:00 11/08/18 15:00 11/08/18 15:00 Laboratory Results 11/08/18 05:25 11/08/18 05:25 11/07/18 11/08/18 11/09/18 05:59 05:59 05:59 Intake Total 1810 2060 615 Output Total 1250 1700 325 Balance 560 360 290 PT 14.6 SEC (12.0-15.0) 11/08/18 05:25 INR 1.19 (0.83-1.16) H 11/08/18 05:25 EKG viewed, my personal interpretation is - NSR, no ischemic change d/w Dr. arguello antibiotic plan for discharge - Physical Exam Constitutional: no apparent distress, appears nourished, not in pain Cardiovascular: regular rate and rhythym, no murmur, rub, or gallop Respiratory: no respiratory distress, no rales or rhonchi, clear to auscultation Gastrointestinal: normoactive bowel sounds, soft, non-tender abdomen, no palpable masses Skin: warm, erythema, induration, other (draining wound where blister has sloughed off) Neurologic: AAOx3, sensation intact bilaterally Psychiatric: interacting appropriately, not anxious, not encephalopathic, thought process linear ICD10 Worksheet Patient Problems: Problems Problem Status Onset Left leg cellulitis Acute Renal insufficiency Acute
--- NOTE | 2018-11-08 16:32 | CPEKG ---
Test Reason : Blood Pressure : / mmHG Vent. Rate : 116 BPM Atrial Rate : 273 BPM P-R Int : 060 ms QRS Dur : 116 ms QT Int : 348 ms P-R-T Axes : 000 041 -26 degrees QTc Int : 484 ms Atrial flutter Right bundle branch block Confirmed by Damian Willard ([id number]) on 11/08/2018 4:31:40 PM Referred By: Scarlet Lehman Confirmed By:Damian Willard
[2018-11-09] MEDS: ceFAZolin 2 GM/DEXTROSE 100 ML IV SCH ×3 (00:59→16:17)
[2018-11-09] MEDS: HYDROCODONE/APAP 5/325 TAB PO PRN (01:06)
--- NOTE | 2018-11-09 09:06 | PCMIDPN ---
Assessment/Plan: # Severe LLE cellulitis with lymphangitis, suspect B hemolytic strep, now s/p adjunctive therapy with clinda and is on cefazolin alone. Overall improvement but left lower extremity still with fairly intense erythema but obvious recession of lymphangitis medial thigh. Bandemia and acute renal failure have resolved. --IV cefazolin through Stop Date: 11/15/18 --follow up in ID on the same date, see discharge tab or interagency form --reviewed risk of antibiotics at beside --encouraged elevation LLE # ARF: resolved micro 10/31 blood cx (2) neg meds cefazolin 2gm IV q8h #9 Subjective: Pt provides that he is feeling really good today, noting that he slept well last night - feels like he is over the hump. Some pain with dressing changes LLE. RUE PICC line with some itchiness. Reports improving appetite. IMine, am scribing for, and in the presence of, Candace Rogers MD. ICandace MD, personally performed the services described in this documentation, as scribed by Mine Leonard in my presence, and it is both accurate and complete. Objective: Vital Signs 3 Temp Pulse Resp BP Pulse Ox 37.0 C 86 16 120/81 H 2 L 11/09/18 07:24 11/09/18 05:56 11/09/18 07:24 11/09/18 07:24 11/09/18 07:24 Laboratory Results 11/08/18 05:25 11/08/18 05:25 3 11/08/18 11/09/18 11/10/18 05:59 05:59 05:59 Intake Total 2060 890 Output Total 1700 1625 Balance 360 -735 3 C-Reactive Protein > 270.0 mg/L (<10.0) H 11/01/18 05:05 - Physical Exam General Appearance: alert, no apparent distress, obese, non-toxic Respiratory: normal breath sounds, other (on 2L of oxygen supply via nasal cannula ), No respiratory distress Cardiac/Chest: regular rate, rhythm, other (pacemaker in left upper chest with dressing in place, no BLE edema ) Extremities: other (LLE: bright erythema in stocking distribution left leg , bulas on medial ankle, faint lymphangitis medial thigh, obvious recession from demarcation previously drawn, leg is elevated on pillow) Peripheral Pulses: 2+: dorsalis-pedis (R), dorsalis-pedis (L) Skin: warm/dry, No diaphoresis, No rash Neuro/Psych: alert, normal mood/affect, oriented x 3 - Line/s RUE PICC Lines: No drainage, No erythema ICD10 Worksheet Patient Problems: Problems Problem Status Onset Left leg cellulitis Acute Renal insufficiency Acute
[2018-11-09] MEDS: APIXABAN 5 MG TAB PO SCH ×2 (09:25→20:31)
[2018-11-09] MEDS: METOPROLOL TARTRATE 50 MG TAB PO SCH (09:27)
[2018-11-09] MEDS: FUROSEMIDE 20 MG TAB PO SCH (09:27)
[2018-11-09] MEDS: DIGOXIN 125 MCG TAB PO SCH (09:30)
--- NOTE | 2018-11-09 11:27 | CPEKG ---
Test Reason : OPEN Blood Pressure : / mmHG Vent. Rate : 122 BPM Atrial Rate : 306 BPM P-R Int : 176 ms QRS Dur : 112 ms QT Int : 337 ms P-R-T Axes : 227 -27 -11 degrees QTc Int : 480 ms Atrial flutter Consider inferior infarction old Confirmed by Damian Willard ([id number]) on 11/09/2018 11:26:55 AM Referred By: Scarlet Lehman Confirmed By:Damian Willard
--- NOTE | 2018-11-09 11:47 | CPEKG ---
Test Reason : OPEN Blood Pressure : / mmHG Vent. Rate : 107 BPM Atrial Rate : 306 BPM P-R Int : 209 ms QRS Dur : 114 ms QT Int : 359 ms P-R-T Axes : 225 029 008 degrees QTc Int : 479 ms Atrial flutter with predominant 3:1 AV block ventricular-paced complexes Incomplete right bundle branch block Confirmed by Damian Willard ([id number]) on 11/09/2018 11:47:24 AM Referred By: Scarlet Lehman Confirmed By:Damian Willard
--- NOTE | 2018-11-09 12:02 | PDCARPN ---
Cardiology Progress Note Chief Complaint: Patient reporting left lower extremity pain with significant improvement. Assessment/Plan: Assessment: 68-year-old male with past history of hypertension, obesity, and likely untreated sleep apnea. Admitted 10/31/2018 sepsis secondary to left lower extremity cellulitis. Has also been in continuous atrial flutter RVR. Noted to have 10 sec episode of ventricular standstill when food got stuck, throat. He reporting episodes of syncope in the past and he in this type of set. Echocardiogram 11/03/2018 showing normal size, EF of 75% . LA and RA are normal size. No significant valvular heart disease. 11/04/2018: Biotronik dual chamber ppm implantation done right atrial and ventricular leads. 11/09/2018: He denies of any chest pain, pressure symptoms suggesting of ischemia. He has maintained sinus rhythm since his cardioversion from yesterday with no malignant arrhythmias or pauses. His weight is stable. Output greater than input. Potential discharge to SNF today. Plan: 1. A-flutter: Maintaining sinus rhythm after cardioversion. Continue on current dose of metoprolol and digoxin. Continue anticoagulation of Eliquis. Patient should be evaluated for sleep apnea an outpatient statin. 2. Sinus arrest: Noted 10 sec pause. Status post ppm implantation. Device check showing functioning within normal limits. Postop chest x-ray showing no delayed pneumothorax. Dressing change done to incision site today. No signs of infection. 3. Transaminases: Possible due to sepsis and antibiotic therapy. Potential some diastolic heart failure could also be contributing (a-flutter with RVR, hyperdynamic LV and IVF for PPM implant). Improvement from yesterday. Continue on oral Lasix. 4. Pleural effusion: Small amount noted on postoperative chest x-ray on 2018. Continue on oral Lasix. 5. HTN: Well controlled on current dose of metoprolol, home dose of losartan/ hydrochlorothiazide DC did due to MARK. 6. MARK: Cr on admission 3.2, currently within normal limits. 7. LLE cellulitis w/ sepsis: On antibiotics, defer to hospitalist and Infectious Disease 8. Morbid obesity Have scheduled the patient for a followup device check and wound check in our office next week, follow-up office visit in the next 2 weeks. Please see discharge instructions. 11/09/18 12:01 Subjective: Reports no chest pressure or pain. Denies of any shortness of breath. Reports no orthopnea, PND. Denies of any palpitations, near-syncope or syncopal events. Reviewed/Discussed With: other (Dr Geiger) Objective: Vital Signs (8 Hrs) Temp Pulse Resp BP Pulse Ox 11/09/18 09:30 87 11/09/18 09:27 88 120/73 11/09/18 07:24 37.0 C 16 120/81 H 2 L 11/09/18 05:56 36.8 C 86 18 121/85 H 97 Intake/Output (24 Hrs) 11/08/18 11/09/18 11/10/18 05:59 05:59 05:59 Intake Total 2060 890 240 Output Total 1700 1625 325 Balance 256 -309 -31 Intake: Oral (ml) 1950 630 240 IV Intake (ml) 150 IV Infused (ml) 110 110 ceFAZolin 2 GM/DEXTROSE 110 110 100 ml @ 200 mls/hr IV Q8H [facility] Rx#:[id number] Output: Urine (ml) 1700 1625 325 Bedside Commode 700 100 Urinal 1000 1525 325 Other: Weight 137.3 kg 137.5 kg Intake Quantity Yes Sufficient Number of Voids Bedside Commode 1 1 Urinal 2 Number of Stools Toilet 1 Result Diagrams: 11/08/18 05:25 11/08/18 05:25 - Physical Exam Constitutional: no apparent distress, obese (Morbid) Ears, Nose, Mouth, Throat: moist mucous membranes Cardiovascular: regular rate and rhythm, no rubs, systolic murmur (1/6 left sternal border.), jugular vein distention (4 cm above sternal notch at a 45 degree), pulses symmetric bilat, No carotid bruit Peripheral Pulses: 1+: dorsalis-pedis (R), 2+: carotid (R), carotid (L) Respiratory: clear to auscultate bilat, no crackles, no wheezes Gastrointestinal: normoactive bowel sounds Skin: warm, no edema (+2 left lower extremity), erythema (Left lower extremity) , other (Dressing to left lower extremity clean dry and intact. Pacemaker incision left anterior chest intact with Steri-Strips, with no redness, swelling , or drainage.) Neurologic: AAOx3 Psychiatric: cooperative, interactive, following commands ICD10 Worksheet Patient Problems: Problems Problem Status Onset Left leg cellulitis Acute Renal insufficiency Acute
[2018-11-09 12:39] LABS: PLATELET COUNT 296 10^3/uL (150-400)
[2018-11-09] MEDS ORDERED: MAGNESIUM SULF 1 GM/DEXTROSE 100 ML IV ONE (13:03)
--- NOTE | 2018-11-09 13:25 | CPEKG ---
Test Reason : OPEN Blood Pressure : / mmHG Vent. Rate : 077 BPM Atrial Rate : 077 BPM P-R Int : 173 ms QRS Dur : 104 ms QT Int : 375 ms P-R-T Axes : 044 016 -02 degrees QTc Int : 425 ms Sinus rhythm Low voltage, precordial leads Incomplete right bundle branch block Confirmed by Damian Willard ([id number]) on 11/09/2018 1:25:06 PM Referred By: Scarlet Lehman Confirmed By:Damian Willard
--- NOTE | 2018-11-09 13:36 | CPEKG ---
Test Reason : OPEN Blood Pressure : / mmHG Vent. Rate : 084 BPM Atrial Rate : 326 BPM P-R Int : 185 ms QRS Dur : 110 ms QT Int : 414 ms P-R-T Axes : 231 001 -25 degrees QTc Int : 490 ms Atrial flutter with varied AV block, Incomplete right bundle branch block Confirmed by Damian Willard ([id number]) on 11/09/2018 1:36:09 PM Referred By: Scarlet Lehman Confirmed By:Damian Willard
--- NOTE | 2018-11-09 13:38 | CPEKG ---
Test Reason : OPEN Blood Pressure : / mmHG Vent. Rate : 084 BPM Atrial Rate : 084 BPM P-R Int : 166 ms QRS Dur : 103 ms QT Int : 367 ms P-R-T Axes : 060 048 010 degrees QTc Int : 434 ms Sinus rhythm Abnormal R-wave progression, early transition Incomplete right bundle branch block Confirmed by Polo Geiger ([id number]) on 11/09/2018 1:38:23 PM Referred By: Scarlet Lehman Confirmed By:Polo Geiger
--- NOTE | 2018-11-09 16:20 | ECHO ---
[email or web address] [address] [address] Main: [phone] Echocardiography Examination Transesophageal Name: JOSE MORALES MR#: [id number] Study Date: 11/08/2018 Study Time: 06:00 AM Date of : 1950 Age: 68 year(s) Height: 177.8 cm (70 in.) Weight: 136.99 kg (302 lb.) BSA: 2.49 m2 Gender: Male Examination: LILLIANA Indication: Pre Cardioversion Image Quality: Contrast: Requested by: Dani Figueroa BP: / Heart Rate: 82 bpm Rhythm: Indication: Pre Cardioversion Procedure Staff Referring Physician: In Service Educator: Gonzalo Flood RDCS Reading Physician: Polo Geiger MD Requesting Provider: Ordering Physician: Dani Figueroa Indication: Pre Cardioversion Conclusions This is a transesophageal echocardiogram performed immediately prior to a cardioversion. The patient was in atrial flutter at the time of the study. Normal left ventricular size and systolic function. LVEF appears to be 55-60% with normal wall motion. The RV, RA and LA dimensions appear to be normal. Valvular anatomy appears to be normal. There does appear to be a dual ostium LAD and circumflex originating from the left coronary cusp. The left atrial appendage was free of thrombus. Following the procedure the patient underwent cardioversion. Findings Proceeded with successful elective DC cardioversion.. Left Ventricle: Normal global systolic left ventricular function. Right Ventricle: Right ventricular systolic function is normal. Left Atrium: No thrombus is identified in the left atrium. Left Atrium Appendage: Normal left atrial appendage. IAS: An agitated saline study was performed and was negative for intracardiac shunting. Exam Details Patient: JOSE MORALES Study Date: 11/08/2018 Page 1 of 2 06:00 AM Procedure Ordered: LILLIANA (No Signature Object) Patient: JOSE MORALES Study Date: 11/08/2018 Page 2 of 2 06:00 AM [id number]
--- NOTE | 2018-11-09 16:24 | HOSPPROG ---
Hospitalist Progress Note Assessment/Plan: * LLE cellulitis with sepsis (POA) -IV ancef -slow improvement -per Dr. Arguello discharge with IV abx as not ready for PO * 10 second cardiac pause - tachy/riley syndrome -s/p PCM * 17 beats of asymptomatic VFib, etiology unclear -Optimize Magnesium -interrogate PPM -Nuclear study tomorrow -Cards following -Stop Digoxin * Afib/flutter -stop digoxin -Increase metoprolol -Eliquis -poor rate control - s/p cardioversion - now NSR * Morbid obesity BMI 46 * ARF - creatinine 3.2 - now improved * HTN -DC ARB/HCTZ * Acute diastolic CHF -Lasix added Subjective: had 17 beats of Vfib earlier. not sympotmatic. no cp or sob. no n/v Objective: Vital Signs Temp Pulse Resp BP Pulse Ox 36.6 C 78 14 115/78 100 11/09/18 12:00 11/09/18 12:00 11/09/18 12:00 11/09/18 12:00 11/09/18 12:00 Laboratory Results 11/09/18 12:25 11/09/18 12:25 11/08/18 11/09/18 11/10/18 05:59 05:59 05:59 Intake Total 2060 890 240 Output Total 1700 1625 650 Balance 360 -735 -410 PT 14.6 SEC (12.0-15.0) 11/08/18 05:25 INR 1.19 (0.83-1.16) H 11/08/18 05:25 - Physical Exam Constitutional: no apparent distress Eyes: PERRL Ears, Nose, Mouth, Throat: moist mucous membranes, hearing normal Cardiovascular: regular rate and rhythym, edema Respiratory: no respiratory distress Gastrointestinal: normoactive bowel sounds Skin: warm Neurologic: AAOx3 Psychiatric: interacting appropriately, not anxious, not encephalopathic Lymph, Heme, Immunologic: No petechiae ICD10 Worksheet Patient Problems: Problems Problem Status Onset Left leg cellulitis Acute Renal insufficiency Acute
--- NOTE | 2018-11-09 16:45 | ASMTCMCOM ---
CM Note CM Note Notes: 11/09/2018 Case Management Note Faxed updates to [employer] for auth. Multiple phone calls checking on auth status. None recieved yet. Case Management d/c poc: [facility] re[facility] pending auth from insurance. Case Management to follow. Date Signed: 11/09/2018 04:45 PM Electronically Signed By:Jolene Crowder RN
--- NOTE | 2018-11-09 16:58 | WOCRNPDOC ---
WOCRN Advanced Assessment Note - Skin Integrity Problem, Advanced Assess Left Lower Leg Dressing Type: Kerlix, Mepilex Dressing Description: Intact, Shadowed Exudate Amount: Minimal Exudate Characteristic(s): Serous Integumentary Issue Intervention: Dressing Changed, Mechanical Debridement Sushma Wound Tissue: Erythema Wound Bed Constitution: Granulation Tissue, Mixed Loose & Adhered Slough/Eschar Wound Edges: Attached Skin Integrity Problem Comment: Sushma wound erythema reduced from Wednesday's demarkation. Roof of all blisters has come off/deflated. Desquamation is almost complete. Cleaned with foaming cleanser and washcloth. Mechanically removed significant amounts of tissue with washcloth. Patient's pain improved greatly since previous assessment. Puracyn gel applied to all of wound bed and covered with mepilex XT foam. Secured with kerlix/netting. Report to Angi SALAZAR. Aubrey SALAZAR in room for care. Small area of blistering possibly evolving on left medial malleolus. Continue current plan of care. Wound care will follow. Supplies sent down.
[2018-11-09] MEDS: METOPROLOL TARTRATE 100 MG TAB PO SCH (20:29)
[2018-11-10] MEDS: HYDROCODONE/APAP 5/325 TAB PO PRN ×2 (01:07→21:08)
[2018-11-10] MEDS: ceFAZolin 2 GM/DEXTROSE 100 ML IV SCH ×3 (01:07→17:28)
[2018-11-10] MEDS: METOPROLOL TARTRATE 100 MG TAB PO SCH ×2 (07:48→21:09)
[2018-11-10] MEDS: APIXABAN 5 MG TAB PO SCH ×2 (07:48→21:08)
[2018-11-10] MEDS: FUROSEMIDE 20 MG TAB PO SCH (07:52)
[2018-11-10] MEDS ORDERED: MAGNESIUM SULF 1 GM/DEXTROSE 100 ML IV ONE (08:31)
[2018-11-10] MEDS ORDERED: REGADENOSON 0.4 MG/5 ML SYR IVP ONE (09:03)
--- NOTE | 2018-11-10 10:36 | CPR ---
[f rep st] NONINVASIVE CARDIAC PROCEDURE REPORT REPORT TITLE: Lexiscan injection of Lexiscan MPI study. SUPERVISING INSECTICIDE MIXER: Dr. Polo Geiger INDICATION FOR PROCEDURE: Episode of nonsustained VT, unable to run on treadmill. PRE: After obtaining informed consent and ensuring patient's n.p.o. status of caffeine for greater t sharma 12 hours, placed on electrocardiogram. Initial EKG shows sinus rhythm, normal axis, early R-wave transition in anterior leads, with inverted T-waves in lead III. Patient denies of chest pain, pres sure or symptoms suggesting of ischemia. Initial blood pressure of 132/78, saturation 95% on 2 L jarret al cannula. Patient was given Lexiscan slow IV push, followed by nuclear isotope. Initially patient within 1 minute of injection, he did report flushing sensation and mild abdominal discomfort, electr ocardiogram remained unchanged, but heart rate did jump up to 81, blood pressure did drop to about 12 2/74. Within 5 minutes, patient reporting all symptoms subsided, heart rate dropping back down to 80 beats per minute. No malignant arrhythmias noted during testing. No significant EKG changes. Missy altman blood pressure 112/67, saturation 97%. IMPRESSION: 68-year-old male with noted episode of nonsustained ventricular tachycardia yesterday, b eing evaluated for possible cardiac ischemia. No chest pain or pressure pre or post injection, did n ote mild flushing sensation and abdominal discomfort, which subsided 5 minutes post injection. Vital signs are stable. At this time. He will finish poststress imaging in Nuclear Medicine. /[id number]/MODL
--- NOTE | 2018-11-10 14:14 | PDCARPN ---
Cardiology Progress Note Chief Complaint: Patient reports no chest pain or pressure. Assessment/Plan: Assessment: 68-year-old male with past history of hypertension, obesity, and likely untreated sleep apnea. Admitted 10/31/2018 sepsis secondary to left lower extremity cellulitis. Has also been in continuous atrial flutter RVR. Noted to have 10 sec episode of ventricular standstill when food got stuck, throat. He reporting episodes of syncope in the past and he in this type of set. Echocardiogram 11/03/2018 showing normal size, EF of 75% . LA and RA are normal size. No significant valvular heart disease. 11/04/2018: Biotronik dual chamber ppm implantation done right atrial and ventricular leads. MPI 11/10/2018: Normal LVEF with no wall motion abnormalities, EF 64%, no definitive ischemia or infarction. 11/10/2018: Patient reports no chest pain pressure or symptoms suggesting of ischemia. Reports no significant shortness of breath. Continues cardiac monitoring showing patient maintaining sinus rhythm, with no malignant arrhythmias or pauses. No further runs of nonsustained VT as noted yesterday. Weight is stable with output greater than input. Laboratories today showing potassium 4.4, magnesium 1.9, BUN 15, creatinine 0.8. MPI study noting no Plan: 1. A-flutter: Maintaining sinus rhythm after cardioversion. No change in current dose of metoprolol. Patient remains on anticoagulation of Eliquis. 2. Sinus arrest: Noted 10 sec pause. Status post ppm implantation. Device check showing functioning within normal limits. Postop chest x-ray showing no delayed pneumothorax. Dressing change done to incision site today. No signs of infection. 3. Nonsustained VT: Patient with 14 beat run of nonsustained VT yesterday. H& H stable. QTC within normal limits. Potassium and magnesium within normal limits. No further runs. MPI study showing no ischemia. Continue on current dose of beta-surya metoprolol. 4. Transaminases: Possible due to sepsis and antibiotic therapy. Potential some diastolic heart failure could also be contributing (a-flutter with RVR, hyperdynamic LV and IVF for PPM implant). Continue on oral Lasix. Recheck in a.m.. 5. Pleural effusion: Small amount noted on postoperative chest x-ray on 2018. Continue on oral Lasix. 6. HTN: Well controlled on current dose of metoprolol and Lasix, home dose of losartan/hydrochlorothiazide DC did due to MARK. 7. MARK: Cr on admission 3.2, currently within normal limits. Continue to monitor. 8. LLE cellulitis w/ sepsis: On antibiotics, defer to hospitalist and Infectious Disease 9. Morbid obesity Have scheduled the patient for a followup device check and wound check in our office next week, follow-up office visit in the next 2 weeks. Please see discharge instructions. 11/10/18 14:11 Subjective: Patient reporting no chest pain pressure or shortness of breath. Reporting continue have pain in left lower extremity, but feeling improved. Up in mobile. Denies of any palpitations, lightheadedness, near-syncope or syncopal events. Reviewed/Discussed With: hospitalist (Dr Mejia), other (Dr Geiger) Objective: Vital Signs (8 Hrs) Temp Pulse Resp BP Pulse Ox 11/10/18 11:51 37.1 C 76 16 105/74 97 11/10/18 08:00 36.9 C 79 16 114/71 96 11/10/18 07:48 81 114/76 Intake/Output (24 Hrs) 11/09/18 11/10/18 11/11/18 05:59 05:59 05:59 Intake Total 890 1270 Output Total 1625 1700 450 Balance -735 -430 -450 Intake: Oral (ml) 630 1270 IV Intake (ml) 150 IV Infused (ml) 110 ceFAZolin 2 GM/DEXTROSE 110 100 ml @ 200 mls/hr IV Q8H [facility] Rx#:[id number] Output: Urine (ml) 1625 1700 450 Bedside Commode 100 Urinal 1525 1700 450 Other: Weight 137.5 kg Number of Voids Bedside Commode 1 Toilet 3 Urinal 2 1 Number of Stools Toilet 3 Result Diagrams: 11/09/18 12:25 11/10/18 05:50 - Physical Exam Constitutional: obese (Morbid) Ears, Nose, Mouth, Throat: moist mucous membranes Cardiovascular: regular rate and rhythm, no rubs, no gallops, systolic murmur (1 /6 left sternal border), pulses symmetric bilat, No jugular vein distention Peripheral Pulses: 1+: dorsalis-pedis (R), 2+: carotid (R), carotid (L) Respiratory: clear to auscultate bilat, no crackles, no wheezes Gastrointestinal: normoactive bowel sounds Skin: warm, erythema (Left lower extremity), other (Left anterior chest pacemaker incision, dressing clean dry and intact, no redness, swelling, or drainage.), No no edema (+3 edema left lower extremity to knee) Neurologic: AAOx3 Psychiatric: cooperative, interactive, following commands ICD10 Worksheet Patient Problems: Problems Problem Status Onset Left leg cellulitis Acute Renal insufficiency Acute
--- NOTE | 2018-11-10 14:32 | HOSPPROG ---
Hospitalist Progress Note Assessment/Plan: * LLE cellulitis with sepsis (POA) -IV ancef with stop date of 11/15. Will f/u with ID on that same day -slow improvement * 10 second cardiac pause - tachy/riley syndrome -s/p PPM * 17 beats of asymptomatic VFib, etiology unclear -electrolytes are within normal -myocardial scan is unremarkable -ppm was interrogated and unremarkable -Digoxin was stopped * Afib/flutter -cont metoprolol -Eliquis -poor rate control - s/p cardioversion - now NSR * Morbid obesity BMI 46 * ARF - creatinine 3.2 - now improved * HTN -DC ARB/HCTZ * Acute diastolic CHF -Lasix added, 20mg daily Dispo: to powerback soon Subjective: no further VT. no cp or sob. Objective: Vital Signs Temp Pulse Resp BP Pulse Ox 37.1 C 76 16 105/74 97 11/10/18 11:51 11/10/18 11:51 11/10/18 11:51 11/10/18 11:51 11/10/18 11:51 Laboratory Results 11/09/18 12:25 11/10/18 05:50 11/09/18 11/10/18 11/11/18 05:59 05:59 05:59 Intake Total 890 1270 Output Total 1625 1700 450 Balance -735 -430 -450 PT 14.6 SEC (12.0-15.0) 11/08/18 05:25 INR 1.19 (0.83-1.16) H 11/08/18 05:25 - Physical Exam Constitutional: no apparent distress Eyes: PERRL, EOMI Ears, Nose, Mouth, Throat: moist mucous membranes, hearing normal Cardiovascular: regular rate and rhythym, edema Respiratory: no respiratory distress Gastrointestinal: normoactive bowel sounds Skin: warm Neurologic: AAOx3 Psychiatric: interacting appropriately, not anxious, not encephalopathic Lymph, Heme, Immunologic: No petechiae ICD10 Worksheet Patient Problems: Problems Problem Status Onset Left leg cellulitis Acute Renal insufficiency Acute
--- NOTE | 2018-11-10 15:17 | PCMIDPN ---
Assessment/Plan: Assessment/Plan: * Severe left lower extremity cellulitis: Significant improvement over last several days although significant amount of cellulitis still remains. Anticipate continued gradual resolution. Will continue with plan of cefazolin through 11/15/2018 with office visit that day to determine if can discontinue antibiotics/transition to oral antibiotics/need to continue IV antibiotics. Side effects of antibiotics reviewed with patient today. * Leukocytosis: Resolved with antibiotic therapy. 11/10/18 15:14 Subjective: Patient feels significantly improved. Less pain in left lower extremity. Objective: Vital Signs Temp Pulse Resp BP Pulse Ox 37.1 C 76 16 105/74 97 11/10/18 11:51 11/10/18 11:51 11/10/18 11:51 11/10/18 11:51 11/10/18 11:51 Laboratory Results 11/09/18 12:25 11/10/18 05:50 11/09/18 11/10/18 11/11/18 05:59 05:59 05:59 Intake Total 890 1270 Output Total 1625 1700 450 Balance -735 -430 -450 C-Reactive Protein > 270.0 mg/L (<10.0) H 11/01/18 05:05 Cefazolin # 10 - Physical Exam General Appearance: alert, no apparent distress EENT: No scleral icterus, No thrush Respiratory: lungs clear, No respiratory distress Cardiac/Chest: regular rate, rhythm, other (Pacemaker site dressed without surrounding erythema or tenderness) Extremities: inflammation (Significant decrease in intensity of erythema over left lower extremity with resolution of erythema left lateral thigh and markedly less prominent erythema over medial thigh; previous bulla all denuded with healthy-appearing granulation tissue present; some desquamation of skin continues) Abdomen: non-tender, No distended - Line/s RUE PICC Lines: No drainage, No erythema ICD10 Worksheet Patient Problems: Problems Problem Status Onset Left leg cellulitis Acute Renal insufficiency Acute
[2018-11-11] MEDS: ceFAZolin 2 GM/DEXTROSE 100 ML IV SCH ×2 (00:12→08:51)
[2018-11-11] MEDS: HYDROCODONE/APAP 5/325 TAB PO PRN (05:42)
[2018-11-11] MEDS: APIXABAN 5 MG TAB PO SCH (08:50)
[2018-11-11] MEDS: FUROSEMIDE 20 MG TAB PO SCH (08:50)
[2018-11-11] MEDS: METOPROLOL TARTRATE 100 MG TAB PO SCH (08:50)
[2018-11-11] MEDS ORDERED: MAGNESIUM OXIDE 400 MG TAB PO SCH (09:00)
[2018-11-11] MEDS ORDERED: FUROSEMIDE 20 MG/2 ML VIAL IVP ONE (10:38)
[2018-11-11] MEDS ORDERED: POTASSIUM CL 10 MEQ TAB PO SCH (10:45)
--- NOTE | 2018-11-11 11:26 | PCMIDPN ---
Assessment/Plan: 1. History of severe right lower extremity cellulitis, likely streptococcal etiology: Much better from what I can see today. Patient has fairly extensive exfoliation of the epidermal and dermal layers of his lower extremity requiring wound care assistance and special dressings. Reiterated the importance of leg elevation when he is at home to reduce edema and facilitate wound healing, as well as heel pumping to improve venous return. Will stick with plan as outlined previously by my colleagues; patient will continue intravenous cefazolin up until November 15. He will be seen in our office that day to determine whether not IV therapy needs to be continued, or can transition to oral therapy. Patient may go home today. 2. Tinea pedis: Patient has fairly extensive skin maceration consistent with this diagnosis between the web spaces of his toes of both the left and right foot. Start Lotrimin twice daily, which will need to be continued at home. Talked to him at length about this being a risk factor for infection moving forward and that he should make a valiant effort to get rid of it, which can take several weeks/ months. Over 25 min spent with this patient today. Subjective: Much better. Eager to go home, hopefully today. Objective: Vital Signs Cefazolin 2 g IV q.8 hours day 10 (tentative stop date November 15) T-max 37.1 degrees Temp Pulse Resp BP Pulse Ox 36.4 C 79 16 119/75 78 L 11/11/18 07:08 11/11/18 07:08 11/11/18 09:59 11/11/18 07:08 11/11/18 09:59 Laboratory Results 11/09/18 12:25 11/11/18 05:30 11/10/18 11/11/18 11/12/18 05:59 05:59 05:59 Intake Total 1270 800 Output Total 1700 1700 Balance -430 -900 C-Reactive Protein > 270.0 mg/L (<10.0) H 11/01/18 05:05 Blood cultures no growth - Physical Exam General Appearance: no apparent distress, obese EENT: pharynx normal, No thrush Respiratory: lungs clear Cardiac/Chest: other (Pacer generator incision left chest with Steri strips in place, no erythema or tenderness or discharge.) Extremities: other (Left lower extremity: Gauze wrap in place throughout most of the lower extremity. Left thigh with pinkish erythema receding inside of margins, marked improvement per patient. Dorsum of his foot is puffy and brawny , but not erythematous, per se.) Skin: other (Patient has extensive skin maceration between 4th and 5th digits of his right foot, and many digits of his left foot consistent with tinea pedis. ) ICD10 Worksheet Patient Problems: Problems Problem Status Onset Left leg cellulitis Acute Renal insufficiency Acute
[2018-11-11] MEDS ORDERED: CLOTRIMAZOLE 1% 15 GM CRTUBE TP SCH (11:30)
--- NOTE | 2018-11-11 12:25 | PDIAF ---
- Diagnosis Diagnosis: Severe left lower extremity cellulitis Code Status: Full Code - Medication Management Shoe Trimmer Antibiotics: Cefazolin 6g/24 hours [facility] Antibiotic Stop Date: 11/15/18 Discharge Medications: electronically signed and located in the Home Medication List. PICC Care - Routine: Yes - Orders Services needed: Physical Therapy, Occupational Therapy Diet Recommendation: no restrictions on diet Wound Care Instructions: Change dressing to left lower leg daily and as needed. Keep leg elevated as much as possible. 1. Flush wounds well with NS and wipe clean with gauze. 2. Shake bottle of Puracyn gel (available from [employer] ) and then apply to yellow/brown dried areas of wound. 3. Cover wound bed with mepilex 4x4 (or 6x6 supplied by wound care) or Mepilex XT 4x4 (also supplied by wound care). 4. Secure with kerlix and netting. Josey ROTHMAN Additional Instructions: Wound care: Please follow up at outpatient [facility]: [phone] Change dressing to left lower leg every other day and as needed. Keep leg elevated as much as possible. 1. Flush wounds well with NS and wipe clean with gauze OR may clean in shower with soap, water and washcloth. 2. Shake bottle of Puracyn gel or a silver gel and then apply a moderate amount to all of wound. 3. Cover wound bed with non border foam 4. Secure with kerlix and netting. Josey ROTHMAN Outpatient sleep study recommended Device Precaution: 1. No lifting more the 10 pounds for 1 week with Left Arm 2. No shower or getting incision wet until after wound check 3. No submerging incision site until completely healed 4. Shoulder immobilizer to be used for the next 48 hour, then as needed for next 4-6 weeks 5. Watch for sign of infection (fever, redness, swelling, drainage, night sweat or chills) Call Dr Rhoades's office immediately if you have any of these symptoms. 6. No Lifting Left arm higher the shoulder height for the next 6 weeks 7. No strenuous exercise for 2 weeks 8. Labs to be draw on 11/17/2018 (CMP and Mg level) 9. Follow up for device and wound check on 11/14/2018 at 1:00 pm. 10. Follow up with Femi SUTTON on 11/18/2018 at 1:45 p.m. at our [place] office 11. Call [facility] [phone] with any question or concerns - Labs/Radiology CBC w/diff Date: 11/10/18 (Weekly Q ) CMP Date: 11/10/18 (Weekly Q ) - Follow Up Care Current Providers and Referrals: Jordin Alatorre MD [Medical Doctor] - 11/15/18 3:30 pm Enrico Arguello MD [Medical Doctor] - 11/15/18 2:00 pm Steve Telles MD [Primary Care Provider] - As per Instructions Miguelito Rhoades MD [Medical Doctor] - (Follow up for device and wound check on 11/14/2018 at 1:00 pm. Follow up with Femi SUTTON on 11/18/2018 at 1:45 p.m. at our [place] office)
--- NOTE | 2018-11-11 12:38 | PDCARPN ---
Cardiology Progress Note Chief Complaint: Patient reports he would like to go home. Assessment/Plan: Assessment: 68-year-old male with past history of hypertension, obesity, and likely untreated sleep apnea. Admitted 10/31/2018 sepsis secondary to left lower extremity cellulitis. Has also been in continuous atrial flutter RVR. Noted to have 10 sec episode of ventricular standstill when food got stuck, throat. He reporting episodes of syncope in the past and he in this type of set. Echocardiogram 11/03/2018 showing normal size, EF of 75% . LA and RA are normal size. No significant valvular heart disease. 11/04/2018: Biotronik dual chamber ppm implantation done right atrial and ventricular leads. MPI 11/10/2018: Normal LVEF with no wall motion abnormalities, EF 64%, no definitive ischemia or infarction. Patient reports no chest pain, pressure or symptoms suggesting of ischemia. Reports no significant shortness of breath. Does note that left lower extremity continues to be painful, but improved. Has noted mild edema both lower extremities. Weight is down from yesterday approximately 1 kilo, output remains greater than input. Does note to have mild JVD of 5 cm above sternal notch. Laboratories today showing sodium 136, potassium 4.3, chloride 102, CO2 28, BUN 16, creatinine 0.8, glucose 8.0, magnesium 1.9. Continuous cardiac monitoring shows that he continues to be in sinus rhythm with no malignant arrhythmias or pauses. Plan: 1. A-flutter: Maintaining sinus rhythm since cardioversion. No change in current dose of metoprolol. Patient remains on anticoagulation of Eliquis. 2. Sinus arrest: Noted 10 sec pause. Status post ppm implantation. Postop day 1 Device check showing functioning within normal limits. Postop chest x- ray showing no delayed pneumothorax. No signs of infection. 3. Nonsustained VT: Patient with 14 beat run of nonsustained VT yesterday. H& H stable. QTC within normal limits. Potassium and magnesium within normal limits. No further runs. MPI study showing no ischemia. Continue on current dose of beta-surya metoprolol. Magnesium 1.9 today. Magnesium oxide ordered 4. Transaminases: Possible due to sepsis and antibiotic therapy. Potential some diastolic heart failure could also be contributing (a-flutter with RVR, hyperdynamic LV and IVF for PPM implant). Mildly worsening peripheral edema today. 1 dose of IV Lasix today, increase oral Lasix to 40 mg p.o. Q.day. Potassium supplement ordered. Plan on repeating CMP and magnesium level day before office visit next week. 5. Pleural effusion: Small amount noted on postoperative chest x-ray on 2018. Continue on oral Lasix. 6. HTN: Well controlled on current dose of metoprolol and Lasix, home dose of losartan/hydrochlorothiazide DC did due to MARK. 7. MARK: Cr on admission 3.2, currently within normal limits. Continue to monitor. 8. LLE cellulitis w/ sepsis: On antibiotics, defer to hospitalist and Infectious Disease 9. Morbid obesity Have scheduled the patient for a followup device check and wound check in our office next week, follow-up office visit in the next 2 weeks. Please see discharge instructions. Post pacemaker discharge orders when the patient, he verbalizes understanding. 11/11/18 12:34 Subjective: Patient denies of any chest pressure or pain. He reports no shortness of breath. Does report ongoing pain in his left lower extremity, but feels improved. Reports mildly worsening peripheral edema. Denies of any palpitations, lightheadedness, near-syncope or syncopal events. Reviewed/Discussed With: hospitalist (Dr Mejia), other (DR Geiger) Objective: Vital Signs (8 Hrs) Temp Pulse Resp BP Pulse Ox 11/11/18 11:24 36.8 C 68 12 114/64 98 11/11/18 09:59 16 78 L 11/11/18 07:08 36.4 C 79 19 119/75 96 Intake/Output (24 Hrs) 11/10/18 11/11/18 11/12/18 05:59 05:59 05:59 Intake Total 1270 800 Output Total 1700 1700 Balance -430 -900 Intake: Oral (ml) 1270 800 Output: Urine (ml) 1700 1700 Bedside Commode 800 Urinal 1700 900 Other: Weight 136.5 kg Number of Voids Toilet 3 Urinal 1 2 Number of Stools Bedside Commode 1 Toilet 3 1 Result Diagrams: 11/09/18 12:25 11/11/18 05:30 - Physical Exam Constitutional: WDWN, no apparent distress, obese (Morbidly) Ears, Nose, Mouth, Throat: moist mucous membranes Cardiovascular: regular rate and rhythm, no murmurs, no rubs, no gallops, jugular vein distention (PCI 4-5 cm above sternal notch.), pulses symmetric bilat, No carotid bruit Peripheral Pulses: 1+: dorsalis-pedis (R), 2+: carotid (R), carotid (L) Respiratory: other (Lungs are clear but diminished in bases bilateral, no rhonchi, rales, or wheezing noted. No accessary muscle use, no intercostal muscle retraction noted.) Gastrointestinal: normoactive bowel sounds, no tenderness, no masses Skin: erythema (Left lower extremity), other (The pacemaker insertion site, left anterior chest, with no redness swelling drainage or ecchymosis. No signs of infection. Dressing clean dry and intact. Left lower extremity associated dressing with the serous drainage,), No no edema (+3 peripheral edema to left lower extremity, formal ejection trace to +1 peripheral edema right lower extremity) Neurologic: AAOx3 Psychiatric: cooperative, interactive, following commands ICD10 Worksheet Patient Problems: Problems Problem Status Onset Left leg cellulitis Acute Renal insufficiency Acute
--- NOTE | 2018-11-11 13:33 | PDDCSUM ---
Discharge Summary Discharge Summary: HPI/Hospital Course: 68-year-old male with past history of hypertension, obesity, and likely untreated sleep apnea. Admitted 10/31/2018 sepsis secondary to left lower extremity cellulitis. Has also been in continuous atrial flutter RVR. Noted to have 10 sec episode of ventricular standstill when food got stuck, throat. He reporting episodes of syncope in the past and he in this type of set. Echocardiogram 11/03/2018 showing normal size, EF of 75% . LA and RA are normal size. No significant valvular heart disease. 11/04/2018: Biotronik dual chamber ppm implantation done right atrial and ventricular leads. ID was consulted for the cellulitis. He is on Ancef through 11/20 and will f/u with ID to determine ongoing management MPI 11/10/2018: Normal LVEF with no wall motion abnormalities, EF 64%, no definitive ischemia or infarction. See below for details per problem list DDX * LLE cellulitis with sepsis (POA) -IV ancef with stop date of 11/15. Will f/u with ID on that same day * 10 second cardiac pause - tachy/riley syndrome -s/p PPM * 17 beats of asymptomatic VFib, etiology unclear -electrolytes are within normal -myocardial scan is unremarkable -ppm was interrogated and unremarkable -Digoxin was stopped -Metoprolol increased * Afib/flutter -cont metoprolol -Eliquis -poor rate control - s/p cardioversion - now NSR * Morbid obesity BMI 46 * ARF - creatinine 3.2 - now improved * HTN -DC ARB/HCTZ * Acute diastolic CHF -Lasix added Dispo: to powerback today EXAM: NAD AAOX3 RRR DECREASED LUNG SOUNDS TRACE LE EDEMA MEDS: SEE MED REC F/U: WITH PCP AND CARDS NEXT WEEK TOTAL TIME SPENT ON D/C IS 35 MINS
--- NOTE | 2018-11-11 13:36 | PDIAF ---
- Diagnosis Diagnosis: Severe left lower extremity cellulitis Code Status: Full Code - Medication Management [employer] Inter[employer]ter Antibiotics: Cefazolin 6g/24 hours Custodial Antibiotic Stop Date: 11/15/18 Discharge Medications: electronically signed and located in the Home Medication List. PICC Care - Routine: Yes - Orders Services needed: Physical Therapy, Occupational Therapy Diet Recommendation: no restrictions on diet Diet Texture: Regular Texture Diet Wound Care Instructions: Change dressing to left lower leg daily and as needed. Keep leg elevated as much as possible. 1. Flush wounds well with NS and wipe clean with gauze. 2. Shake bottle of Puracyn gel (available from merchandise presentation manager ) and then apply to yellow/brown dried areas of wound. 3. Cover wound bed with mepilex 4x4 (or 6x6 supplied by wound care) or Mepilex XT 4x4 (also supplied by wound care). 4. Secure with kerlix and netting. Josey ROTHMAN Additional Instructions: Wound care: Please follow up at outpatient [facility]: [phone] Change dressing to left lower leg every other day and as needed. Keep leg elevated as much as possible. 1. Flush wounds well with NS and wipe clean with gauze OR may clean in shower with soap, water and washcloth. 2. Shake bottle of Puracyn gel or a silver gel and then apply a moderate amount to all of wound. 3. Cover wound bed with non border foam 4. Secure with kerlix and netting. Josey ROTHMAN Outpatient sleep study recommended Device Precaution: 1. No lifting more the 10 pounds for 1 week with Left Arm 2. No shower or getting incision wet until after wound check 3. No submerging incision site until completely healed 4. Shoulder immobilizer to be used for the next 48 hour, then as needed for next 4-6 weeks 5. Watch for sign of infection (fever, redness, swelling, drainage, night sweat or chills) Call Dr Rhoades's office immediately if you have any of these symptoms. 6. No Lifting Left arm higher the shoulder height for the next 6 weeks 7. No strenuous exercise for 2 weeks 8. Labs to be draw on 11/17/2018 (CMP and Mg level) 9. Follow up for device and wound check on 11/14/2018 at 1:00 pm. 10. Follow up with Femi SUTTON on 11/18/2018 at 1:45 p.m. at our [place] office 11. Call [facility] [phone] with any question or concerns 12. follow up with infectious disease on November 15 Activity: as tolerated - Labs/Radiology CBC w/diff Date: 11/10/18 (Weekly Q ) CMP Date: 11/10/18 (Weekly Q ) - Follow Up Care Current Providers and Referrals: Jordin Alatorre MD [Medical Doctor] - 11/15/18 3:30 pm Enrico Arguello MD [Medical Doctor] - 11/15/18 2:00 pm Steve Telles MD [Primary Care Provider] - As per Instructions Miguelito Rhoades MD [Medical Doctor] - (Follow up for device and wound check on 11/14/2018 at 1:00 pm. Follow up with Femi SUTTON on 11/18/2018 at 1:45 p.m. at our [place] office)
[2018-11-11 15:18] VITALS: BP 122/74
--- NOTE | 2018-11-11 15:33 | PDHOMEO2F ---
Home Oxygen Face to Face Home Orders: I certify that a physician or a nurse practitioner or physician's warehouse assistant has had a [id number] encounter with this patient on the date of this order due to the diagnosis listed, which relates to the primary reason the patient requires home oxygen. Alternative treatments have been tried, or considered, and deemed ineffective. It is anticipated that supplemental oxygen will result in improvement with treatment. Home oxygen qualifying diagnosis: chf SpO2 on room air (%): 78 Frequency of home oxygen needed: continuous Home oxygen liters per minute: 2 Home oxygen delivery device: nasal cannula Concentrator: Yes E-tanks for mobility and back up: Yes If ordering portable O2, is the patient mobile in the home?: Yes I certify that, based on these findings, the home oxygen is medically necessary for this patient for the following length of time. Length of time home oxygen needed: 99 years
--- NOTE | 2018-11-11 16:49 | ASMTLACE ---
LACE Length of stay for Answers: 7-13 days current admission Acuity / Level of Answers: Yes Care: Did the patient have an inpatient admission? Comorbidities - select Answers: Other Notes: DVT; HTN all that apply # of Emergency department Answers: 1-2 visits in the last 6 months Score: 10 Date Signed: 11/11/2018 04:49 PM Electronically Signed By:Jolene Crowder RN
--- NOTE | 2018-11-11 16:56 | ASMTDCNOTE ---
Case Management Discharge Discharge Order Complete? Answers: Yes Patient to Obtain Answers: via Family Medications Transportation Arranged Answers: Family/Friends Faxed Final Orders Answers: Yes Notes: [facility] CARDOZA Agency/Facility Transfer Answers: Yes Notes: [facility] CARDO[facility] Report Printed & Faxed to Receiving Agency Discharge Comments Notes: 11/11/2018 Case Management Note Per [facility] liason insurance auth system has been down and auth will not happen until early next week. Discussed with pt who prefers to go home. Arranged home care and home infusion. Faxed final orders to [facility] and [facility]. [facility] delivery tonight at 1800. [facility] CARDOZA RN to meet pt at home at 1800 for teaching. Home O2 delivery organized by respiratory therapy. Pt to follow up at wound care clinic. Case Management d/c poc: Home with sister, [facility] and [facility] for infusions. Date Signed: 11/11/2018 04:51 PM Electronically Signed By:Jolene Crowder RN
--- NOTE | 2018-11-11 17:14 | ASDISCHSUM ---
Discharge Information Plan Status:Home with Home Health Medically Cleared to Leave:11/10/2018 Discharge Date:11/10/2018 CM D/C Disposition:Home Health Service ADT D/C Disposition:Care Home Facility Projected Discharge Date:11/07/2018 11:00 AM Transportation at D/C:Family Discharge Delay Reason: Follow-Up Date:11/07/2018 11:00 AM Discharge Slot: Final Diagnosis: Placement Information Referral Type:*[facility]NF Referral ID:[id number] Provider Name: Address 1: Phone Number: Address 2: Fax Number: City: Selection Factors: State: Referral Type:Home Infusion Referral ID:[id number] Provider Name:[facility] Address 1[address] Address 2: City:[place] Selection Factors: State:[place] Referral Type:*Home Health Care Services Referral ID:[facility]-[id number] Provider Name:[facility] Address 1:[address] Phone Number: Address 2: Fax Number: City:[place] Selection Factors: State:[place] Patient Contact Information Contact Name:OUMAR Relationship:Sister Address: Work Phone: City: [facility] Phone: [facility] Code:[place] Email: Financial Information Financial Class:BCOP Primary Plan Desc: OUT OF [facility] Primary Plan Number:[id number] Secondary Plan Desc: Secondary Plan Number: Assessment Information LACE LACE Length of stay for Answers: 7-13 days current admission Acuity / Level of Answers: Yes Care: Did the patient have an inpatient admission? Comorbidities - select Answers: Other Notes: DVT; HTN all that apply # of Emergency department Answers: 1-2 visits in the last 6 months Score: 10 Date Signed: 11/11/2018 04:49 PM Electronically Signed By:Jolene Crowder RN [facility] CM Progress Note CM Note CM Note Notes: Pt s a 68 y/o man admitted for left leg cellulitis and acute renal insufficiency. Pt will most likely d/c independent when medically stable. No therapies ordered at this time. CM available for changes. Plan: Independent Date Signed: 11/01/2018 10:01 AM Electronically Signed By:CHRISTINA Luz [facility] CM Progress Note CM Note CM Note Notes: 11/04/2018 Case Management Note Discussed pt during rounds this morning. Pt to have pacemaker today. Following ID notes for discharge antibiotic needs. Case Management d/c poc: to be determined. Case Management to follow. Date Signed: 11/04/2018 02:37 PM Electronically Signed By:Jolene Crowder RN [facility] CM Progress Note CM Note CM Note Notes: CM spoke with PT. PT is recommending SNF. Pt accepting recommendations and has chosen for CM to send ref[facility] Referrals sent. D/C not expected this weekend. D/C Plan: SNF/Rehab Date Signed: 11/05/2018 01:51 PM Electronically Signed By:Lola Anthony [facility] CM Progress Note CM Note CM Note Notes: 11/07/3018 Case Management Note Discussed pt during rounds this morning. Pt to have cardioversion tomorrow. Pt chose [facility] in [place] for SNF rehab. Faxed updates to [facility]. Requested auth. Case Management d/c poc: [facility] rehab pending auth. Case Management to follow. Date Signed: 11/07/2018 02:32 PM Electronically Signed By:Jolene Crowder RN [facility] CM Progress Note CM Note CM Note Notes: Spoke with Jenni from [facility] who states they do not have insurance auth on patient and don't expect it until tomorrow. Patient cannot discharge until insurance auth for SNF rehab has been secured. CM will follow. Date Signed: 11/08/2018 02:40 PM Electronically Signed By:Hayley Hugo LCSW [facility] CM Progress Note CM Note CM Note Notes: 11/09/2018 Case Management Note Faxed updates to [facility] for auth. Multiple phone calls checking on auth status. None recieved yet. Case Management d/c poc: [facility] SN[facility] rehab pending auth from insurance. Case Management to follow. Date Signed: 11/09/2018 04:45 PM Electronically Signed By:Jolene Crowder RN Case Management Discharge Plan Note Case Management Discharge Discharge Order Complete? Answers: Yes Patient to Obtain Answers: via Family Medications Transportation Arranged Answers: Family/Friends Faxed Final Orders Answers: Yes Notes: [facility] Agency/Facility Transfer Answers: Yes Notes: [facility] Report Printed & Faxed to Receiving Agency Discharge Comments Notes: 11/11/2018 Case Management Note Per [facility] insurance auth system has been down and auth will not happen until early next week. Discussed with pt who prefers to go home. Arranged home care and home infusion. Faxed final orders to [facility] and [facility] infusion. [facility] delivery tonight at 1800. Feliz RN to meet pt at home at 1800 for teaching. Home O2 delivery organized by respiratory therapy. Pt to follow up at wound care clinic. Case Management d/c poc: Home with sister, [facility] and [facility] for infusions. Date Signed: 11/11/2018 04:51 PM Electronically Signed By:Jolene Crowder RN Intervention Information Intervention Type:*Incorrect Registration Date of Service:10/31/2018 03:00 PM Patient Type:Observation Staff Member:MARIE Ceballos [place] Hours: Discipline: Severity: Comment:
[2018-11-12] MEDS ORDERED: FUROSEMIDE 40 MG TAB PO SCH (09:00)
== END 2018-11-11 17:44 | DRG 853 ==
LOC: OBSVTOIN 12:46 → F3E 13:42 → F2N 11-02 10:18 → F2W 11-03 13:30
PROVIDERS: ADMIT Hospitalist; ATTEND Family Medicine
PROC: 02HV33Z Insertion of Infusion Device into Superior Vena Cava, Percutaneous Approach (ICD-10-PCS; 2018-11-02)
PROC: 0JH606Z Insertion of Pacemaker, Dual Chamber into Chest Subcutaneous Tissue and Fascia, Open Approach (ICD-10-PCS; principal; 2018-11-04)
PROC: 02H63JZ Insertion of Pacemaker Lead into Right Atrium, Percutaneous Approach (ICD-10-PCS; principal; 2018-11-04)
PROC: 02HK3JZ Insertion of Pacemaker Lead into Right Ventricle, Percutaneous Approach (ICD-10-PCS; principal; 2018-11-04)
PROC: 02HV33Z Insertion of Infusion Device into Superior Vena Cava, Percutaneous Approach (ICD-10-PCS; 2018-11-05)
PROC: B246ZZ4 Ultrasonography of Right and Left Heart, Transesophageal (ICD-10-PCS; 2018-11-08)
PROC: 5A2204Z Restoration of Cardiac Rhythm, Single (ICD-10-PCS; 2018-11-08)
DX: A41.9 Sepsis, unspecified organism (principal); L03.116 Cellulitis of left lower limb; I48.92 Unspecified atrial flutter; I49.5 Sick sinus syndrome; I11.0 Hypertensive heart disease with heart failure; I50.31 Acute diastolic (congestive) heart failure; E66.01 Morbid (severe) obesity due to excess calories; Z68.42 Body mass index [BMI] 45.0-49.9, adult; N17.9 Acute kidney failure, unspecified; R74.0 Nonspecific elevation of levels of transaminase and lactic acid dehydrogenase [LDH]; G47.30 Sleep apnea, unspecified; B35.3 Tinea pedis; Z86.718 Personal history of other venous thrombosis and embolism
CPT/HCPCS: 96374; 97116-GP; 97161-GP; 97166-GO; 97530-GO; 97530-GP; 97535-GO; A9500; C1751; C1785; C1898; J0690; J0696; J1170; J1644; J1940; J2250; J2704; J2785; J2997; J3010; J3475; Q9967